=== PATIENT | male | born 1960 | race Hispanic/Latino ===

== ENCOUNTER 2016-09-24 09:37 | Emergency (ER) | payer MEDICAID, OTHER ==
[2016-09-24 09:37] VITALS: BMI 26.4
[2016-09-24 09:41] VITALS: BP 122/73; PULSE 114; RESP 22; TEMP 98.1; O2SAT 94
[2016-09-24] MEDS ORDERED: Albuterol-Ipratrop 3 mg / 0.5 (3 ml) UD ONE ×2 (09:50)
[2016-09-24] MEDS ORDERED: Albuterol-Ipratrop 3 mg / 0.5 (3 ml) UD IH STA ×3 (09:50→13:35)
--- NOTE | 2016-09-24 09:53 | ED PDOC ---
HPI: SOB/CHF/COPD Time Seen by Provider: 09/24/16 09:43 Chief Complaint (Nursing): Respiratory Distress History Per: Patient (SOB wheezing and cough productive clear sputum x 3 days. No fever or chest pain.) Onset/Duration Of Symptoms: Days (3) Current Symptoms Are (Timing): Still Present Initiating Event: Out Of Medications Quality: Tightness Exacerbating Factor(s): Coughing Current Respiratory Medications: Albuterol Severity: Moderate Pain Scale Rating Of: 0 Associated Symptoms: Productive Cough. denies: Fever, Chest Pain Past Medical History Vital Signs: Last Vital Signs Temp 98.1 F 09/24/16 09:40 Pulse 114 H 09/24/16 09:40 Resp 22 09/24/16 09:40 BP 122/73 09/24/16 09:40 Pulse Ox 94 L 09/24/16 09:53 - Medical History PMH: Back Problems, COPD, Depression, Emphysema, Pneumonia, Sleep Apnea Denies: Diabetes, Hepatitis, HIV, HTN, Chronic Kidney Disease, Seizures, Sexually Transmitted Disease - Family History Family History: States: Unknown Family Hx - Immunization History Hx Tetanus Toxoid Vaccination: No Hx Influenza Vaccination: Yes Hx Pneumococcal Vaccination: No - Home Medications Home Medications: Ambulatory Orders Medication Instructions Recorded predniSONE [Prednisone] 20 mg PO DAILY #8 tab 11/10/15 traMADol [Ultram] 50 mg PO TID #7 tab 11/10/15 Prednisone [Deltasone] 40 mg PO DAILY #6 tablet 03/10/16 Albuterol HFA [Ventolin HFA 90 2 puff IH Q4H #1 puff 09/24/16 mcg/actuation (8 g)] Azithromycin [Zithromax] 500 mg PO DAILY #6 tab 09/24/16 predniSONE [predniSONE Tab] 10 mg PO TID #15 tab 09/24/16 - Allergies Allergies/Adverse Reactions: Allergies Allergy/AdvReac Type Severity Reaction Status Date / Time No Known Allergies Allergy Verified 11/10/15 12:58 Review of Systems ROS Statement: Except As Marked, All Systems Reviewed And Found Negative Constitutional: Negative for: Fever Respiratory: Positive for: Cough, Shortness of Breath, Wheezing Physical Exam - Reviewed Nursing Documentation Reviewed: Yes Vital Signs Reviewed: Yes - Physical Exam Appears: Positive for: Non-toxic, No Acute Distress Head Exam: Positive for: ATRAUMATIC, NORMAL INSPECTION, NORMOCEPHALIC Skin: Positive for: Normal Color, Warm, DRY Eye Exam: Positive for: EOMI, Normal appearance, PERRL ENT: Positive for: Normal ENT Inspection Neck: Positive for: Normal, Painless ROM Cardiovascular/Chest: Positive for: Regular Rate, Rhythm Respiratory: Positive for: Rhonchi, Wheezing. Negative for: Accessory Muscle Use, Respiratory Distress Gastrointestinal/Abdominal: Positive for: Normal Exam, Bowel Sounds, Soft Back: Positive for: Normal Inspection Extremity: Positive for: Normal ROM Neurologic/Psych: Positive for: Alert, Oriented - Laboratory Results Result Diagrams: 09/24/16 10:10 09/24/16 09:52 - ECG O2 Sat by Pulse Oximetry: 94 Disposition - Clinical Impression Clinical Impression: COPD (chronic obstructive pulmonary disease) - Patient ED Disposition Is Patient to be Admitted: No Counseled Patient/Family Regarding: Studies Performed, Diagnosis, Need For Followup, Rx Given - Disposition Referrals: [facility] [Outside] Disposition: Routine/Home Disposition Time: 13:37 Condition: FAIR Prescriptions: Albuterol HFA [Ventolin HFA 90 mcg/actuation (8 g)] 2 puff IH Q4H #1 puff Azithromycin [Zithromax] 500 mg PO DAILY #6 tab predniSONE [predniSONE Tab] 10 mg PO TID #15 tab Instructions: COPD (Chronic Obstructive Pulmonary Disease) (ED)
[2016-09-24 10:21] LABS: BASO # 0.1 K/uL (0.0-0.2); BASO % 0.6 % (0.0-2.0); EOS # 0.4 K/uL (0.0-0.7); EOS % 4.4 % (0.0-4.0); LYMPH # 1.8 K/uL (1.0-4.3); LYMPH % 17.5 % (20.0-40.0); MEAN CORPUSCULAR HEMOGLOBIN 31.5 pg (27.0-31.0); MEAN CORPUSCULAR HGB CONC 33.6 g/dL (33.0-37.0); MEAN PLATELET VOLUME 8.6 fl (7.2-11.7); MONO # 0.8 K/uL (0.0-0.8); MONO % 7.5 % (0.0-10.0); NEUT # 7.1 K/uL (1.8-7.0); NRBC % 0.1 % (0.0-0.0); RED CELL DISTRIBUTION WIDTH 13.7 % (11.5-14.5); WHITE BLOOD COUNT 10.1 K/uL (4.8-10.8)
[2016-09-24 10:24] LABS: MEAN CELL VOLUME 93.9 fl (80.0-94.0)
[2016-09-24 10:31] LABS: ALB/GLOB RATIO 1.4 (1.0-2.1); ALKALINE PHOSPHATASE 39 U/L (38-126); ALT/SGPT 16 U/L (21-72); AST/SGOT 27 U/L (17-59); BLOOD UREA NITROGEN 13 mg/dl (9-20); CALCIUM 9.4 mg/dL (8.4-10.2); CARBON DIOXIDE 24 mmol/L (22-30); CHLORIDE 105 mmol/L (98-107); GFR AFRICAN-AMERICAN > 60; GLUCOSE,RANDOM 205 mg/dL (75-110); POTASSIUM 4.6 MMOL/L (3.6-5.0); SODIUM 142 mmol/l (132-148); TOTAL PROTEIN 7.3 G/DL (6.3-8.2)
--- NOTE | 2016-09-24 10:59 | RAD ---
HISTORY: cough COMPARISON: Comparison chest dated 12/06/2015. FINDINGS: LUNGS: No active pulmonary disease. PLEURA: No significant pleural effusion identified, no pneumothorax apparent. CARDIOVASCULAR: Normal. OSSEOUS STRUCTURES: No significant abnormalities. VISUALIZED UPPER ABDOMEN: Normal. OTHER FINDINGS: None. IMPRESSION: No active disease.
[2016-09-24] MEDS ORDERED: Oxycodone/Acetaminophen 5/325 mg Tab PO STA (13:35)
[2016-09-24] MEDS ORDERED: Oxycodone/Acetaminophen 5/325 mg Tab ONE (13:35)
== END 2016-09-24 14:45 | disposition home or self-care (01) ==
LOC: H.ER 09:37
DX: J44.9 Chronic obstructive pulmonary disease, unspecified (principal); R05 Cough

== ENCOUNTER 2016-10-07 06:47 | Inpatient (IN) | payer MEDICAID ==
[2016-10-07 06:47] VITALS: BMI 26.4
[2016-10-07] MEDS ORDERED: Albuterol-Ipratrop 3 mg / 0.5 (3 ml) UD INH STA ×4 (07:27→11:11)
--- NOTE | 2016-10-07 07:32 | ED PDOC ---
HPI: SOB/CHF/COPD Time Seen by Provider: 10/07/16 07:16 Chief Complaint (Nursing): Flu-like Symptoms Chief Complaint (Provider): Flu-like Symptoms, SOB History Per: Patient History/Exam Limitations: no limitations Onset/Duration Of Symptoms: Days Current Symptoms Are (Timing): Still Present Initiating Event: Upper Respiratory Illness Quality: Aching Current Respiratory Medications: See Home Med List Associated Symptoms: Fever, Chills, Productive Cough. denies: Sweating Additional Complaint(s): 56 Year old male Joseph Mahan with history of COPD, presents to the ED with cough and congestion for 3 days. Associated symptoms include Fever, chills, trouble breathing, and a headache. Patient admits to smoking 5-6 cigarettes per day for 40 years. Patient notes that the fever and chills began yesterday, with no nausea, vomiting or diarrhea. PMD: Denies Past Medical History Reviewed: Historical Data, Nursing Documentation, Vital Signs Vital Signs: Last Vital Signs Temp 98.2 F 10/07/16 10:47 Pulse 93 H 10/07/16 10:47 Resp 19 10/07/16 10:47 BP 128/65 10/07/16 10:47 Pulse Ox 98 10/07/16 10:53 - Medical History PMH: Back Problems, COPD, Depression, Emphysema, Pneumonia, Sleep Apnea Denies: Diabetes, Hepatitis, HIV, HTN, Chronic Kidney Disease, Seizures, Sexually Transmitted Disease - Surgical History Surgical History: No Surg Hx - Family History Family History: States: Unknown Family Hx - Social History Current smoker - smoking cessation education provided: Yes Drugs: Denies - Immunization History Hx Tetanus Toxoid Vaccination: No Hx Influenza Vaccination: Yes Hx Pneumococcal Vaccination: No - Home Medications Home Medications: Ambulatory Orders Medication Instructions Recorded predniSONE [Prednisone] 20 mg PO DAILY #8 tab 11/10/15 traMADol [Ultram] 50 mg PO TID #7 tab 11/10/15 Prednisone [Deltasone] 40 mg PO DAILY #6 tablet 03/10/16 Albuterol HFA [Ventolin HFA 90 2 puff IH Q4H #1 puff 09/24/16 mcg/actuation (8 g)] Azithromycin [Zithromax] 500 mg PO DAILY #6 tab 09/24/16 predniSONE [predniSONE Tab] 10 mg PO TID #15 tab 09/24/16 - Allergies Allergies/Adverse Reactions: Allergies Allergy/AdvReac Type Severity Reaction Status Date / Time No Known Allergies Allergy Verified 11/10/15 12:58 Review of Systems ROS Statement: Except As Marked, All Systems Reviewed And Found Negative Constitutional: Positive for: Fever, Chills. Negative for: Sweats Cardiovascular: Negative for: Edema Respiratory: Positive for: Cough, Shortness of Breath, Pleuritic Pain, Wheezing (diffused) Gastrointestinal: Negative for: Vomiting, Diarrhea Musculoskeletal: Positive for: Other (diffuses body pain) Neurological: Positive for: Headache Physical Exam - Reviewed Nursing Documentation Reviewed: Yes Vital Signs Reviewed: Yes - Physical Exam Appears: Positive for: Uncomfortable Skin: Positive for: Normal Color, Warm Eye Exam: Positive for: Normal appearance, PERRL Neck: Positive for: Normal, Painless ROM, Supple Cardiovascular/Chest: Positive for: Regular Rate, Rhythm. Negative for: Murmur Respiratory: Positive for: Wheezing (inspiratory and expiratory ), Respiratory Distress (mild labored breathing ). Negative for: Accessory Muscle Use Gastrointestinal/Abdominal: Positive for: Normal Exam, Soft. Negative for: Tenderness Extremity: Positive for: Normal ROM. Negative for: Pedal Edema, Calf Tenderness Neurologic/Psych: Positive for: Alert, Oriented. Negative for: Motor/Sensory Deficits - Laboratory Results Result Diagrams: 10/07/16 07:30 10/07/16 07:30 - ECG O2 Sat by Pulse Oximetry: 98 (RA) Pulse Ox Interpretation: Normal - Radiology X-Ray: Viewed By Me, Read By Radiologist X-Ray Interpretation: No Acute Disease - Progress Re-evaluation Time: 10:50 Condition: Re-examined, Unchanged Medical Decision Making Medical Decision Makin: Initial impression: Upper respiratory tract infection, COPD with exacerbation, Pneumonia, Bronchitis, Dehydration. Initial plan: * ABG Shock Panel * EKG * Comp metabolic panel * EKG-ED * CBC with differentials * PA/LAT RAD * Albuterol/Ipratropium 3mg * Sodium Chloride IV 1000ml * Methylprednisolone 125mg * Blood Culture * IV * Flu A B * Re-Eval ~ Scribe Attestation: Documented by Analia Greer training under Dora Jain, acting as a scribe for Dr. Meng. Provider Scribe Attestation: All medical record entries made by the Scribe were at my direction and personally dictated by me. I have reviewed the chart and agree that the record accurately reflects my personal performance of the history, physical exam, medical decision making, and the department course for this patient. I have also personally directed, reviewed, and agree with the discharge instructions and disposition. 10.15a - patient is still short of breath and states dyspnea on exertion and fatigue as well. He still has diffuse wheezing. Per RN his peak flows baseline/ post treatment are 200/220. Agrees to be admitted. Does not have PMD. Admitted to med/surg obs 1055a - case d/w Dr. Elizondo for admission Disposition - Clinical Impression Clinical Impression: COPD (chronic obstructive pulmonary disease) with emphysema - Patient ED Disposition Is Patient to be Admitted: Yes Doctor Will See Patient In The: Hospital - Disposition Disposition: Transfer of Care Disposition Time: 10:15 Condition: FAIR - Pt Status Changed To: Hospital Disposition Of: Observation
[2016-10-07] MEDS ORDERED: Sodium Chloride 0.9% 1,000 ML IV STA (07:33)
[2016-10-07 07:55] LABS: BASO % 0.6 % (0.0-2.0); HEMATOCRIT 40.4 % (35.0-51.0); LYMPH # 0.8 K/uL (1.0-4.3); LYMPH % 10.2 % (20.0-40.0); MEAN CELL VOLUME 91.6 fl (80.0-94.0); MEAN CORPUSCULAR HEMOGLOBIN 31.5 pg (27.0-31.0); MEAN CORPUSCULAR HGB CONC 34.4 g/dL (33.0-37.0); MEAN PLATELET VOLUME 8.1 fl (7.2-11.7); MONO # 0.9 K/uL (0.0-0.8); MONO % 12.2 % (0.0-10.0); NEUT # 5.9 K/uL (1.8-7.0); NRBC % 0.2 % (0.0-0.0); RED CELL DISTRIBUTION WIDTH 13.6 % (11.5-14.5); WHITE BLOOD COUNT 7.6 K/uL (4.8-10.8)
[2016-10-07] MEDS ORDERED: Albuterol-Ipratrop 3 mg / 0.5 (3 ml) UD ONE (08:00)
[2016-10-07 08:07] LABS: ALB/GLOB RATIO 1.2 (1.0-2.1); ALKALINE PHOSPHATASE 44 U/L (38-126); ALT/SGPT 31 U/L (21-72); AST/SGOT 48 U/L (17-59); BILIRUBIN,TOTAL 0.9 mg/dl (0.2-1.3); BLOOD UREA NITROGEN 16 mg/dl (9-20); CALCIUM 8.9 mg/dL (8.4-10.2); CARBON DIOXIDE 19 mmol/L (22-30); CHLORIDE 96 mmol/L (98-107); GFR AFRICAN-AMERICAN > 60; GLUCOSE,RANDOM 89 mg/dL (75-110); POTASSIUM 4.4 MMOL/L (3.6-5.0); SODIUM 131 mmol/l (132-148); TOTAL PROTEIN 7.5 G/DL (6.3-8.2)
--- NOTE | 2016-10-07 10:28 | RAD ---
HISTORY: Cough, fever ,chills x 1week COMPARISON: 09/24/2016. FINDINGS: LUNGS: The lungs are well inflated and clear. Ne on PLEURA: No significant pleural effusion identified, no pneumothorax apparent. CARDIOVASCULAR: Normal. OSSEOUS STRUCTURES: No significant abnormalities. VISUALIZED UPPER ABDOMEN: Normal. OTHER FINDINGS: None. IMPRESSION: No active pulmonary disease.
[2016-10-07] MEDS ORDERED: Promethazine DM 12.5 mg-30 mg/10 ml Syrup PO STA (11:11)
[2016-10-07 11:33] LABS: ABG ALLEN TEST YES; ARTERIAL BLOOD GAS HCO3 23.5 mmol/L (21-28); ARTERIAL BLOOD GAS PH 7.51 (7.35-7.45); ARTERIAL BLOOD GAS PO2 34 mm/Hg (80-100)
[2016-10-07] MEDS: Albuterol-Ipratrop 3 mg / 0.5 (3 ml) UD INH SCH ×2 (14:10→19:04)
[2016-10-07] MEDS: methylPREDNISolone 60 MG in Sodium Chloride 0.9% 50 ML IV SCH ×2 (17:25→21:20)
[2016-10-07] MEDS: guaiFENesin DM 200 mg-20 mg/10 ml UD PO PRN (21:20)
[2016-10-08] MEDS: Albuterol-Ipratrop 3 mg / 0.5 (3 ml) UD INH SCH ×3 (01:21→13:22)
[2016-10-08] MEDS: methylPREDNISolone 60 MG in Sodium Chloride 0.9% 50 ML IV SCH ×4 (04:00→21:34)
[2016-10-08] MEDS: guaiFENesin DM 200 mg-20 mg/10 ml UD PO PRN (05:54)
[2016-10-08 09:04] LABS: THYROID STIMULATING HORMONE 0.64 mIU/ML (0.46-4.68)
[2016-10-08] MEDS: Enoxaparin 40 mg Syringe SC SCH (09:05)
--- NOTE | 2016-10-08 10:28 | CARD ---
APPROVED REPORT EKG Measurement Heart [id number] <Conclusion> Sinus tachycardia Possible Left atrial enlargement Borderline ECG
[2016-10-08] MEDS: Promethazine DM 12.5 mg-30 mg/10 ml Syrup PO PRN ×2 (13:15→19:03)
[2016-10-09] MEDS: Albuterol-Ipratrop 3 mg / 0.5 (3 ml) UD INH SCH ×2 (01:12→07:52)
[2016-10-09] MEDS: methylPREDNISolone 60 MG in Sodium Chloride 0.9% 50 ML IV SCH ×5 (03:36→21:17)
[2016-10-09] MEDS: Promethazine DM 12.5 mg-30 mg/10 ml Syrup PO PRN ×3 (03:36→16:35)
[2016-10-09 07:29] LABS: HEMATOCRIT 40.7 % (35.0-51.0); MEAN CELL VOLUME 92.3 fl (80.0-94.0); MEAN CORPUSCULAR HEMOGLOBIN 31.3 pg (27.0-31.0); MEAN CORPUSCULAR HGB CONC 33.9 g/dL (33.0-37.0); RED CELL DISTRIBUTION WIDTH 13.7 % (11.5-14.5); WHITE BLOOD COUNT 17.3 K/uL (4.8-10.8)
[2016-10-09 07:42] LABS: ALB/GLOB RATIO 1.2 (1.0-2.1); ALKALINE PHOSPHATASE 51 U/L (38-126); ALT/SGPT 41 U/L (21-72); AST/SGOT 47 U/L (17-59); BILIRUBIN,TOTAL 0.2 mg/dl (0.2-1.3); BLOOD UREA NITROGEN 17 mg/dl (9-20); CALCIUM 9.2 mg/dL (8.4-10.2); CARBON DIOXIDE 24 mmol/L (22-30); CHLORIDE 103 mmol/L (98-107); GFR AFRICAN-AMERICAN > 60; GLUCOSE,RANDOM 128 mg/dL (75-110); POTASSIUM 4.1 MMOL/L (3.6-5.0); SODIUM 141 mmol/l (132-148); TOTAL PROTEIN 7.1 G/DL (6.3-8.2)
[2016-10-09] MEDS: Enoxaparin 40 mg Syringe SC SCH (09:09)
[2016-10-09] MEDS ORDERED: Albuterol 0.083% Inhal Sol (2.5 mg/3 mL) UD INH PRN (12:13)
--- NOTE | 2016-10-09 12:15 | CP.PCM.PN ---
<MaradaleFadumo - Last Filed: 10/09/16 19:18> Subjective - Date & Time of Evaluation Date of Evaluation: 10/09/16 Time of Evaluation: 08:30 - Subjective Subjective: 56M seen and examined at bedside with attending this morning. Pt reports he is still experiencing a significant amount of dyspnea and feels he needs the oxygen. He denies chest pain and says this is the worst "flare up " he's ever had and admits that he still smokes. Otherwise he has no acute complaints. Objective - Vital Signs/Intake and Output Vital Signs (last 24 hours): Temp Pulse Resp BP Pulse Ox 36.7 C 81 20 144/83 95 10/09/16 07:51 10/09/16 07:51 10/09/16 07:51 10/09/16 07:51 10/09/16 07:51 - Medications Medications: Current Medications Acetaminophen (Tylenol 325mg Tab) 650 mg PO Q6 PRN PRN Reason: Pain, moderate (4-7) Last Admin: 10/09/16 09:12 Dose: 650 mg Albuterol Sulfate (Albuterol 0.083% Inhal Susan (2.5 Mg/3 Ml) Ud) 2.5 mg INH RQ6 PRN PRN Reason: Shortness of Breath Enoxaparin Sodium (Lovenox) 40 mg SC DAILY FAHEEM PRN Reason: Protocol Last Admin: 10/09/16 09:09 Dose: 40 mg Methylprednisolone 60 mg/ (Sodium Chloride) 50 mls @ 100 mls/hr IV Q6 FHAEEM Last Admin: 10/09/16 10:07 Dose: 100 mls/hr Nicotine (Nicoderm Cq) 1 patch TD DAILY FAHEEM Last Admin: 10/09/16 09:10 Dose: 1 patch Promethazine HCl/Dextromethorphan (Phenergan Dm Syrup) 10 ml PO Q6 PRN PRN Reason: Cough Last Admin: 10/09/16 09:10 Dose: 10 ml Tiotropium [place] (Spiriva) 18 mcg INH DAILY FAHEEM Zolpidem Tartrate (Ambien) 5 mg PO HS PRN PRN Reason: Insomnia Last Admin: 10/08/16 22:48 Dose: 5 mg - Labs Labs: 10/09/16 06:05 10/09/16 06:05 - Constitutional Appears: Non-toxic, No Acute Distress - Head Exam Head Exam: ATRAUMATIC, NORMAL INSPECTION - Eye Exam Eye Exam: EOMI, PERRL - ENT Exam ENT Exam: Mucous Membranes Moist, Normal Exam - Neck Exam Neck Exam: Full ROM, Normal Inspection - Respiratory Exam Respiratory Exam: Wheezes (throughout bilaterally), NORMAL BREATHING PATTERN. absent: Decreased Breath Sounds - Cardiovascular Exam Cardiovascular Exam: REGULAR RHYTHM. absent: JVD - GI/Abdominal Exam GI & Abdominal Exam: Soft, Normal Bowel Sounds. absent: Tenderness - Extremities Exam Extremities Exam: Full ROM, Normal Capillary Refill - Neurological Exam Neurological Exam: Alert, Awake - Psychiatric Exam Psychiatric exam: Normal Affect, Normal Mood - Skin Skin Exam: Normal Color, Warm Assessment and Plan (1) COPD exacerbation Assessment & Plan: Continues to make some improvement. Steroids are causing leukocytosis. - Spiriva 18mcg, INH, Daily - Albuterol 0.083% 2.5mg, INH, Q6H - Methyprednisone 60mg, IV, Q6H - Oxygen 2L NC - Promethazine 10ml, PO, Q6H PRN Status: Acute (2) DVT prophylaxis Assessment & Plan: Lovenox 40mg, SC, Daily Status: Acute (3) Alcohol abuse Assessment & Plan: Significant alcohol abuse history. CIWA- 3 - CIWA Score, QShift - Ativan 2mg, IV, Q2H PRN CIWA Score > 10 Status: Chronic <Addi Elizondo - Last Filed: 10/19/16 18:17> Objective - Vital Signs/Intake and Output Vital Signs (last 24 hours): Temp Pulse Resp BP Pulse Ox 97.4 F L 79 20 133/83 93 L 10/12/16 08:18 10/12/16 08:18 10/12/16 08:18 10/12/16 08:18 10/12/16 08:18 - Labs Labs: 10/11/16 05:55 10/11/16 05:55 Assessment and Plan - Assessment and Plan (Free Text) Assessment: Patient was personally seen and examined by me in rounds with residents. Available labs and diagnostic data reviewed. Case, Patient's condition and management plan discussed with residents in rounds. Agree with resident's documentation. Plan: As ordered. Addi Elizondo MD
[2016-10-09] MEDS: Pantoprazole 40 mg EC Tab PO SCH (13:39)
[2016-10-09] MEDS: Albuterol 0.083% Inhal Sol (2.5 mg/3 mL) UD INH SCH (19:46)
[2016-10-09] MEDS: Docusate-Senna 50 mg-8.6 mg Tab PO SCH (21:16)
[2016-10-10] MEDS: Albuterol 0.083% Inhal Sol (2.5 mg/3 mL) UD INH SCH ×4 (01:18→19:35)
[2016-10-10] MEDS: methylPREDNISolone 60 MG in Sodium Chloride 0.9% 50 ML IV SCH ×2 (04:21→08:59)
[2016-10-10] MEDS: Promethazine DM 12.5 mg-30 mg/10 ml Syrup PO PRN ×3 (04:21→15:51)
--- NOTE | 2016-10-10 07:35 | CP.PCM.PN ---
<Fadumo Wright - Last Filed: 10/10/16 11:58> Subjective - Date & Time of Evaluation Date of Evaluation: 10/10/16 Time of Evaluation: 07:35 - Subjective Subjective: 56M seen and examined at bedside with attending. Patient reports feeling much better this morning and reports minimal SOB but denies any chest pain/visual/auditory/headache symptoms Objective - Vital Signs/Intake and Output Vital Signs (last 24 hours): Temp Pulse Resp BP Pulse Ox 36.6 C 76 20 144/85 96 10/09/16 20:31 10/09/16 20:31 10/09/16 20:31 10/09/16 20:31 10/09/16 20:31 Intake and Output: 10/10/16 10/10/16 06:59 18:59 Intake Total 50 Balance 50 - Medications Medications: Current Medications Acetaminophen (Tylenol 325mg Tab) 650 mg PO Q6 PRN PRN Reason: Pain, moderate (4-7) Last Admin: 10/09/16 09:12 Dose: 650 mg Albuterol Sulfate (Albuterol 0.083% Inhal Susan (2.5 Mg/3 Ml) Ud) 2.5 mg INH RQ6 FAHEEM Last Admin: 10/10/16 01:18 Dose: Not Given Enoxaparin Sodium (Lovenox) 40 mg SC DAILY FAHEEM PRN Reason: Protocol Last Admin: 10/09/16 09:09 Dose: 40 mg Methylprednisolone 60 mg/ (Sodium Chloride) 50 mls @ 100 mls/hr IV Q6 FAHEEM Last Admin: 10/10/16 04:21 Dose: 100 mls/hr Lorazepam (Ativan) 2 mg IVP Q2H PRN PRN Reason: CIWA Score >10 Nicotine (Nicoderm Cq) 1 patch TD DAILY FAHEEM Last Admin: 10/09/16 09:10 Dose: 1 patch Pantoprazole Sodium (Protonix Ec Tab) 40 mg PO DAILY FAHEEM Last Admin: 10/09/16 13:39 Dose: 40 mg Promethazine HCl/Dextromethorphan (Phenergan Dm Syrup) 10 ml PO Q6 PRN PRN Reason: Cough Last Admin: 10/10/16 04:21 Dose: 10 ml Senna/Docusate Sodium (Senokot S 50 Mg-8.6 Mg) 2 tab PO HS FAHEEM Last Admin: 10/09/16 21:16 Dose: 2 tab Tiotropium [place] (Spiriva) 18 mcg INH DAILY FAHEEM Zolpidem Tartrate (Ambien) 5 mg PO HS PRN PRN Reason: Insomnia Last Admin: 10/09/16 21:58 Dose: 5 mg - Labs Labs: 10/09/16 06:05 10/09/16 06:05 - Constitutional Appears: Well, Non-toxic, No Acute Distress - Head Exam Head Exam: ATRAUMATIC, NORMAL INSPECTION - Eye Exam Eye Exam: EOMI, PERRL. absent: Nystagmus - ENT Exam ENT Exam: Mucous Membranes Moist, Normal Exam - Neck Exam Neck Exam: Full ROM, Normal Inspection - Respiratory Exam Respiratory Exam: Wheezes (MUCH improved but still present b/l), NORMAL BREATHING PATTERN. absent: Rales - Cardiovascular Exam Cardiovascular Exam: REGULAR RHYTHM. absent: JVD - GI/Abdominal Exam GI & Abdominal Exam: Soft, Normal Bowel Sounds. absent: Tenderness - Extremities Exam Additional comments: No tremors in hands - Neurological Exam Neurological Exam: Alert, Awake - Psychiatric Exam Psychiatric exam: Normal Affect, Normal Mood - Skin Skin Exam: Normal Color, Warm Assessment and Plan (1) COPD exacerbation Assessment & Plan: Continues to make some improvement. Steroids are causing leukocytosis. - Spiriva 18mcg, INH, Daily - Albuterol 0.083% 2.5mg, INH, Q6H - Methyprednisone 60mg, IV, Q6H - Promethazine 10ml, PO, Q6H PRN Status: Acute (2) DVT prophylaxis Assessment & Plan: Lovenox 40mg, SC, Daily Status: Acute (3) Alcohol abuse Assessment & Plan: Significant alcohol abuse history. CIWA- 0 this morning - CIWA Score, QShift - Ativan 2mg, IV, Q2H PRN CIWA Score > 10 Status: Chronic <Elizondo,Addi K - Last Filed: 10/19/16 18:19> Objective - Vital Signs/Intake and Output Vital Signs (last 24 hours): Temp Pulse Resp BP Pulse Ox 97.4 F L 79 20 133/83 93 L 10/12/16 08:18 10/12/16 08:18 10/12/16 08:18 10/12/16 08:18 10/12/16 08:18 - Labs Labs: 10/11/16 05:55 10/11/16 05:55 Assessment and Plan - Assessment and Plan (Free Text) Assessment: Patient was personally seen and examined by me in rounds with residents. Available labs and diagnostic data reviewed. Case, Patient's condition and management plan discussed with residents in rounds. Agree with resident's documentation. Plan: As ordered. Addi Elizondo MD
[2016-10-10] MEDS: Pantoprazole 40 mg EC Tab PO SCH (08:57)
[2016-10-10] MEDS: Tiotropium 18 mcg Cap For Inhalation INH SCH (08:57)
[2016-10-10] MEDS: Enoxaparin 40 mg Syringe SC SCH (08:57)
--- NOTE | 2016-10-10 13:19 | HP ---
CHIEF COMPLAINT: Shortness of breath and flu-like symptoms. HISTORY OF PRESENT ILLNESS: This is a 56-year-old male, known case of COPD, who was having cough and congestion for a few days before admission, which got worse and started having fever, chills, shortness of breath, so patient was brought to Emergency Room and was admitted for further management. REVIEW OF SYSTEMS: Positive for generalized malaise, weakness, fatigue, flu- like symptoms, fever, chills, cough and congestion. Review of systems otherwise is negative for headache, dizziness, syncope, loss of consciousness, nausea, vomiting, diarrhea, constipation, any new joint or extremity pain. Review of systems of all other organ systems is unremarkable. PAST MEDICAL HISTORY: Significant for COPD, sleep apnea, back problem. PAST SURGICAL HISTORY: Unremarkable. PERSONAL HISTORY: The patient is currently a nondrinker, no substance abuse. However, the patient has history of lots, many years of smoking. The patient also still smokes but has cut down. FAMILY HISTORY: Noncontributory. MEDICATIONS: The patient is on Ultram, prednisone, Ventolin, Zithromax. ALLERGIES: The patient is not allergic to any medication. FAMILY HISTORY: Noncontributory. PHYSICAL EXAMINATION: GENERAL: Well-built, well-nourished, overweight 56-year-old male in no acute distress. VITAL SIGNS: Temperature afebrile, pulse 77, respirations 16, blood pressure 120/80. HEENT: Pupils reacting to light. NECK: No JVD, no thyromegaly, no lymphadenopathy, no nystagmus. Normocephalic , atraumatic skull. HEART: S1, S2 normal, regular. LUNGS: Good bilateral air exchange. The patient has prolonged expiration. Also has rhonchi and wheezing. ABDOMEN: Soft, nontender, no organomegaly, no fluid. Bowel sounds are plus. EXTREMITIES: No edema, no calf swelling, no tenderness, no acute ischemia. CENTRAL NERVOUS SYSTEM: The patient is alert, awake, oriented x 3. There is no sign of any acute gross focal motor or sensory neurological deficit. DIAGNOSTIC DATA: Available diagnostic data reviewed. EKG shows sinus tachycardia but no acute ST-T changes. Chest x-ray shows normal chest x-ray without any acute pneumonia. Vitamin B12 level is 781. TSH level is 0.64. Sodium 134, potassium 4.4, chloride 96, bicarb 19, BUN is 16, creatinine is 0.8. SMA-12 is unremarkable. Flu test is negative. WBC 7.6, hemoglobin 13.9, hematocrit 10.4, platelets 231. ADMITTING IMPRESSION: Chronic obstructive pulmonary disease with exacerbation. PLAN: As ordered. Case and plan discussed with patient. Addi Elizondo MD cc: [id number] TT: 10/08/2016 16:45:00 sn 10/10/2016 12:18:55 BECCA
[2016-10-10] MEDS: methylPREDNISolone 40 MG in Sodium Chloride 0.9% 50 ML IVPB SCH ×2 (15:50→17:07)
[2016-10-10] MEDS: Docusate-Senna 50 mg-8.6 mg Tab PO SCH (21:35)
[2016-10-11] MEDS: Albuterol 0.083% Inhal Sol (2.5 mg/3 mL) UD INH SCH ×4 (00:59→19:52)
[2016-10-11] MEDS: methylPREDNISolone 40 MG in Sodium Chloride 0.9% 50 ML IVPB SCH (01:00)
[2016-10-11] MEDS: Promethazine DM 12.5 mg-30 mg/10 ml Syrup PO PRN ×4 (01:00→22:28)
[2016-10-11 07:47] LABS: HEMATOCRIT 43.9 % (35.0-51.0); MEAN CELL VOLUME 93.1 fl (80.0-94.0); MEAN CORPUSCULAR HEMOGLOBIN 31.1 pg (27.0-31.0); MEAN CORPUSCULAR HGB CONC 33.4 g/dL (33.0-37.0); RED CELL DISTRIBUTION WIDTH 13.6 % (11.5-14.5); WHITE BLOOD COUNT 15.2 K/uL (4.8-10.8)
--- NOTE | 2016-10-11 08:07 | CP.PCM.PN ---
<Fadumo Wright - Last Filed: 10/11/16 16:24> Subjective - Date & Time of Evaluation Date of Evaluation: 10/11/16 Time of Evaluation: 06:20 - Subjective Subjective: 56M seen and examined at bedside with attending follow up for shortness of breath as it relates to COPD exacerbation. Patient reports significant improvement. He currently denies any chest pain and experiences most of his shortness of breath when walking around which is improved from previous when it was present at rest. He is eating well and has no other complaints. Objective - Vital Signs/Intake and Output Vital Signs (last 24 hours): Temp Pulse Resp BP Pulse Ox 36.6 C 77 20 141/85 94 L 10/11/16 08:00 10/11/16 08:00 10/11/16 08:00 10/11/16 08:00 10/11/16 08:00 - Medications Medications: Current Medications Acetaminophen (Tylenol 325mg Tab) 650 mg PO Q6 PRN PRN Reason: Pain, moderate (4-7) Last Admin: 10/09/16 09:12 Dose: 650 mg Albuterol Sulfate (Albuterol 0.083% Inhal Susan (2.5 Mg/3 Ml) Ud) 2.5 mg INH RQ6 FAHEEM Last Admin: 10/11/16 07:43 Dose: 2.5 mg Enoxaparin Sodium (Lovenox) 40 mg SC DAILY FAHEEM PRN Reason: Protocol Last Admin: 10/10/16 08:57 Dose: 40 mg Methylprednisolone 30 mg/ (Sodium Chloride) 50 mls @ 100 mls/hr IVPB Q12H FAHEEM Lorazepam (Ativan) 2 mg IVP Q2H PRN PRN Reason: CIWA Score >10 Nicotine (Nicoderm Cq) 1 patch TD DAILY FAHEEM Last Admin: 10/10/16 08:56 Dose: 1 patch Pantoprazole Sodium (Protonix Ec Tab) 40 mg PO DAILY FAHEEM Last Admin: 10/10/16 08:57 Dose: 40 mg Promethazine HCl/Dextromethorphan (Phenergan Dm Syrup) 10 ml PO Q6 PRN PRN Reason: Cough Last Admin: 10/11/16 01:00 Dose: 10 ml Senna/Docusate Sodium (Senokot S 50 Mg-8.6 Mg) 2 tab PO HS FAHEEM Last Admin: 10/10/16 21:35 Dose: 2 tab Tiotropium [place] (Spiriva) 18 mcg INH DAILY FAHEEM Last Admin: 10/10/16 08:57 Dose: 18 mcg Zolpidem Tartrate (Ambien) 5 mg PO HS PRN PRN Reason: Insomnia Last Admin: 10/10/16 21:35 Dose: 5 mg - Labs Labs: 10/11/16 05:55 10/09/16 06:05 - Constitutional Appears: Well, Non-toxic, No Acute Distress - Head Exam Head Exam: ATRAUMATIC, NORMAL INSPECTION - Eye Exam Eye Exam: EOMI, PERRL - ENT Exam ENT Exam: Mucous Membranes Moist, Normal Exam - Neck Exam Neck Exam: Full ROM, Normal Inspection - Respiratory Exam Respiratory Exam: Clear to Ausculation Bilateral, Wheezes (mild wheezing b/l primarily in upper lobes), NORMAL BREATHING PATTERN. absent: Rales, Rhonchi - Cardiovascular Exam Cardiovascular Exam: REGULAR RHYTHM. absent: JVD - GI/Abdominal Exam GI & Abdominal Exam: Soft, Normal Bowel Sounds. absent: Tenderness - Extremities Exam Extremities Exam: Full ROM, Normal Capillary Refill - Neurological Exam Neurological Exam: Alert, Awake, Oriented x3 - Psychiatric Exam Psychiatric exam: Normal Affect, Normal Mood - Skin Skin Exam: Normal Color, Warm Assessment and Plan (1) COPD exacerbation Assessment & Plan: Continues to improve, tapering steroids today which are still contributing to leukocytosis. - Spiriva 18mcg, INH, Daily - Albuterol 0.083% 2.5mg, INH, Q6H - Methyprednisone 30mg, IV, Q12H - Promethazine 10ml, PO, Q6H PRN Status: Acute (3) DVT prophylaxis Assessment & Plan: Lovenox 40mg, SC, Daily Status: Acute (4) Alcohol abuse Assessment & Plan: HD# 3 w/ alcohol abuse history. CIWA- 0 this morning - CIWA Score, QShift - Ativan 2mg, IV, Q2H PRN CIWA Score > 10 Status: Chronic <Elizondo,Addi K - Last Filed: 10/18/16 17:12> Objective - Vital Signs/Intake and Output Vital Signs (last 24 hours): Temp Pulse Resp BP Pulse Ox 97.4 F L 79 20 133/83 93 L 10/12/16 08:18 10/12/16 08:18 10/12/16 08:18 10/12/16 08:18 10/12/16 08:18 - Labs Labs: 10/11/16 05:55 10/11/16 05:55 Assessment and Plan - Assessment and Plan (Free Text) Assessment: Patient was personally seen and examined by me in rounds with residents. Available labs and diagnostic data reviewed. Case, Patient's condition and management plan discussed with residents in rounds. Agree with resident's documentation. Plan: As ordered. Addi Elizondo MD
[2016-10-11 08:20] LABS: BLOOD UREA NITROGEN 17 mg/dl (9-20); CALCIUM 9.7 mg/dL (8.4-10.2); CARBON DIOXIDE 26 mmol/L (22-30); CHLORIDE 95 mmol/L (98-107); GFR AFRICAN-AMERICAN > 60; GLUCOSE,RANDOM 115 mg/dL (75-110); POTASSIUM 4.4 MMOL/L (3.6-5.0); SODIUM 137 mmol/l (132-148)
[2016-10-11] MEDS: Enoxaparin 40 mg Syringe SC SCH (09:30)
[2016-10-11] MEDS: Pantoprazole 40 mg EC Tab PO SCH (09:35)
[2016-10-11] MEDS: Tiotropium 18 mcg Cap For Inhalation INH SCH (09:36)
[2016-10-11] MEDS: methylPREDNISolone 30 MG in Sodium Chloride 0.9% 50 ML IVPB SCH ×2 (10:11→21:00)
[2016-10-11] MEDS: Docusate-Senna 50 mg-8.6 mg Tab PO SCH (22:31)
[2016-10-12] MEDS: Albuterol 0.083% Inhal Sol (2.5 mg/3 mL) UD INH SCH ×2 (02:18→07:24)
--- NOTE | 2016-10-12 06:45 | CP.PCM.DIS ---
Provider - Provider Date of Admission: 10/08/16 09:03 Attending physician: Addi Elizondo MD Time Spent in preparation of Discharge (in minutes): 45 Diagnosis - Discharge Diagnosis (1) COPD exacerbation Status: Acute Comment: Resolved. Discharge on Ventolin and Spiriva, and Medrol pack (2) Encounter for smoking cessation counseling Status: Acute Comment: Patient counseled on smoking cessation. He feels he isready to completely quit and wishes to continue with the Nicoderm smoking cessation at this time. Health and benefits discussed in the context of COPD. He should be discharged with Nicoderm and close follow up. Hospital Course - Lab Results Lab Results: Most Recent Lab Values WBC 15.2 K/uL (4.8-10.8) H 10/11/16 05:55 RBC 4.71 Mil/uL (4.40-5.90) 10/11/16 05:55 Hgb 14.7 g/dL (12.0-18.0) 10/11/16 05:55 Hct 43.9 % (35.0-51.0) 10/11/16 05:55 MCV 93.1 fl (80.0-94.0) 10/11/16 05:55 MCH 31.1 pg (27.0-31.0) H 10/11/16 05:55 MCHC 33.4 g/dL (33.0-37.0) 10/11/16 05:55 RDW 13.6 % (11.5-14.5) 10/11/16 05:55 Plt Count 345 K/uL (130-400) 10/11/16 05:55 MPV 8.1 fl (7.2-11.7) 10/07/16 07:30 Neut % (Auto) 77.0 % (50.0-75.0) H 10/07/16 07:30 Lymph % (Auto) 10.2 % (20.0-40.0) L 10/07/16 07:30 Knox % (Auto) 12.2 % (0.0-10.0) H 10/07/16 07:30 Eos % (Auto) 0.0 % (0.0-4.0) 10/07/16 07:30 Baso % (Auto) 0.6 % (0.0-2.0) 10/07/16 07:30 Neut # 5.9 K/uL (1.8-7.0) 10/07/16 07:30 Lymph # 0.8 K/uL (1.0-4.3) L 10/07/16 07:30 Knox # 0.9 K/uL (0.0-0.8) H 10/07/16 07:30 Eos # 0.0 K/uL (0.0-0.7) 10/07/16 07:30 Baso # 0.0 K/uL (0.0-0.2) 10/07/16 07:30 pCO2 26 mm/Hg (35-45) L 10/07/16 11:30 pO2 34 mm/Hg (80-100) L* 10/07/16 11:30 HCO3 23.5 mmol/L (21-28) 10/07/16 11:30 ABG pH 7.51 (7.35-7.45) H 10/07/16 11:30 ABG Total CO2 21.5 mmol/L (22-28) L 10/07/16 11:30 ABG O2 Saturation 74.5 % (95-98) L 10/07/16 11:30 ABG Base Excess -0.9 mmol/L (-2.0-3.0) 10/07/16 11:30 Bulmaro Test Yes 10/07/16 11:30 Sodium > 200.0 mmol/L (132-148) H* 10/07/16 11:30 Chloride 115.0 mmol/L (98-107) H 10/07/16 11:30 Glucose 72 mg/dL (75-110) L 10/07/16 11:30 Lactate 1.9 mmol/L (0.7-2.1) 10/07/16 11:30 FiO2 40.0 % 10/07/16 11:30 Crit Value Called To lanny Webber 10/07/16 11:30 Crit Value Called By 203 10/07/16 11:30 Crit Value Read Back Y 10/07/16 11:30 Blood Gas Notified Time 1133 10/07/16 11:30 Sodium 137 mmol/l (132-148) 10/11/16 05:55 Potassium 4.4 MMOL/L (3.6-5.0) 10/11/16 05:55 Chloride 95 mmol/L (98-107) L 10/11/16 05:55 Carbon Dioxide 26 mmol/L (22-30) 10/11/16 05:55 Anion Gap 20 (10-20) 10/11/16 05:55 BUN 17 mg/dl (9-20) 10/11/16 05:55 Creatinine 0.6 mg/dL (0.8-1.5) L 10/11/16 05:55 Est GFR ( Amer) > 60 10/11/16 05:55 Est GFR (Non-Af Amer) > 60 10/11/16 05:55 POC Glucose (mg/dL) 87 mg/dL (65-110) 10/07/16 07:04 Random Glucose 115 mg/dL (75-110) H 10/11/16 05:55 Calcium 9.7 mg/dL (8.4-10.2) 10/11/16 05:55 Total Bilirubin 0.2 mg/dl (0.2-1.3) 10/09/16 06:05 AST 47 U/L (17-59) 10/09/16 06:05 ALT 41 U/L (21-72) 10/09/16 06:05 Alkaline Phosphatase 51 U/L (38-126) 10/09/16 06:05 Total Protein 7.1 G/DL (6.3-8.2) 10/09/16 06:05 Albumin 3.8 g/dL (3.5-5.0) 10/09/16 06:05 Globulin 3.3 gm/dL (2.2-3.9) 10/09/16 06:05 Albumin/Globulin Ratio 1.2 (1.0-2.1) 10/09/16 06:05 Vitamin B12 781 pg/mL (239-931) 10/08/16 07:50 TSH 3rd Generation 0.64 mIU/ML (0.46-4.68) 10/08/16 07:50 Influenza Typ A,B (EIA) Negative for flu a/b (NEGATIVE) 10/07/16 07:30 - Hospital Course Hospital Course: F/U COPD Exacerbation. Patient seen and examined at bedside this morning with attending. No complaints, denies SOB, chest pain, and reports eating well, and passing stool. 56M admitted for severe COPD exacerbation which has resolved with aggressive steroid and pulmonary treatments. He is stable for discharge with Spiriva, Ventolin, and Nicoderm. Discharge Exam - Head Exam Head Exam: ATRAUMATIC, NORMAL INSPECTION - Eye Exam Eye Exam: EOMI, PERRL - ENT Exam ENT Exam: Mucous Membranes Moist, Normal Exam - Neck Exam Neck exam: Full Rom, Normal Inspection - Respiratory Exam Respiratory Exam: Clear to PA & Lateral, NORMAL BREATHING PATTERN. absent: Rales, Rhonchi, Wheezes - Cardiovascular Exam Cardiovascular Exam: REGULAR RHYTHM. absent: JVD - GI/Abdominal Exam GI & Abdominal Exam: Normal Bowel Sounds, Soft. absent: Tenderness - Neurological Exam Neurological exam: Alert, Oriented x3 - Psychiatric Exam Psychiatric exam: Normal Affect (CIWA Score 0), Normal Mood - Skin Skin Exam: Normal Color, Warm Discharge Plan - Discharge Medications Prescriptions: Nicotine 21 mg/24 hr [Nicoderm Cq] 1 patch TD DAILY #30 patch predniSONE [predniSONE Tab] 30 mg PO DAILY #13 tab Tiotropium [Spiriva] 18 mcg INH DAILY #1 cap - Follow Up Plan Condition: FAIR Disposition: HOME/ ROUTINE Patient education suggested?: Yes Instructions: How to Stop Smoking (DC), Cigarette Smoking and Your Health (GEN) , COPD (Chronic Obstructive Pulmonary Disease) (DC) Referrals: Addi Elizondo MD [Staff Provider] -
[2016-10-12 08:18] VITALS: BP 133/83; PULSE 79; RESP 20; TEMP 97.4; O2SAT 93
[2016-10-12] MEDS ORDERED: Fluticasone-Salmeterol 250-50mcg Diskus IH SCH (09:00)
[2016-10-12] MEDS: Enoxaparin 40 mg Syringe SC SCH (09:56)
[2016-10-12] MEDS: Promethazine DM 12.5 mg-30 mg/10 ml Syrup PO PRN (09:56)
[2016-10-12] MEDS: Pantoprazole 40 mg EC Tab PO SCH (09:58)
[2016-10-12] MEDS: Tiotropium 18 mcg Cap For Inhalation INH SCH (09:58)
[2016-10-12] MEDS: methylPREDNISolone 30 MG in Sodium Chloride 0.9% 50 ML IVPB SCH (10:03)
== END 2016-10-12 12:22 | disposition home or self-care (01) | DRG 88 ==
LOC: H.ER 06:47 → H.ERHOLD 11:02 → H.MEDSURG1 11:55 → OBSVTOIN 10-08 09:03
PROVIDERS: ADMIT Internal Medicine; ATTEND Internal Medicine
DX: J44.1 Chronic obstructive pulmonary disease with (acute) exacerbation (principal); F32.9 Major depressive disorder, single episode, unspecified; E86.0 Dehydration; G47.30 Sleep apnea, unspecified; Z71.6 Tobacco abuse counseling; F17.210 Nicotine dependence, cigarettes, uncomplicated; F10.10 Alcohol abuse, uncomplicated; Y90.9 Presence of alcohol in blood, level not specified

== ENCOUNTER 2016-11-14 09:49 | Emergency (ER) | payer MEDICAID, OTHER ==
[2016-11-14 09:56] VITALS: BP 132/79; O2SAT 98; BMI 27.8
--- NOTE | 2016-11-14 10:33 | ED PDOC ---
Lower Extremity Pain/Injury Time Seen by Provider: 11/14/16 10:07 Chief Complaint (Nursing): Lower Extremity Problem/Injury Chief Complaint (Provider): right foot pain History Per: Patient Additional Complaint(s): 56 year old male with history of chronic right foot pain presents to ED with pain to right foot that started yesterday. Patient denies any fall or trauma. He states last year he was diagnosed with right foot stress fracture. Patient states he walks for several miles per day. Patient denies any fever or chills. No meds taken for pain relief. Past Medical History Reviewed: Historical Data, Nursing Documentation, Vital Signs Vital Signs: Last Vital Signs Temp 97 F L 11/14/16 09:55 Pulse 103 H 11/14/16 09:55 Resp BP 132/79 11/14/16 09:55 Pulse Ox 98 11/14/16 10:01 - Medical History PMH: Back Problems, COPD, Depression, Sleep Apnea - Family History Family History: States: No Known Family Hx - Living Arrangements Living Arrangements: Other (lives in penit[facility]) - Social History Current smoker - smoking cessation education provided: Yes (5-6 cigarettes per day) Alcohol: None Drugs: Other (h/o heroin and etoh abuse) - Home Medications Home Medications: Ambulatory Orders Medication Instructions Recorded Albuterol HFA [Ventolin HFA 90 2 puff IH Q4H #1 puff 09/24/16 mcg/actuation (8 g)] Tiotropium [Spiriva] 18 mcg INH DAILY #1 cap 10/12/16 Fluticasone/Salmeterol 250/50 1 puff INH RQ12 #1 puff 11/06/16 [Advair Diskus 250/50] Montelukast [Singulair] 10 mg PO HS #30 tab 11/06/16 Moxifloxacin [Avelox] 400 mg PO DAILY #7 tab 11/06/16 Ibuprofen [Motrin] 600 mg PO Q6 PRN #15 tab 11/14/16 - Allergies Allergies/Adverse Reactions: Allergies Allergy/AdvReac Type Severity Reaction Status Date / Time No Known Allergies Allergy Verified 10/29/16 14:59 Wells Criteria for PE - Wells Criteria for Pulmonary Embolism Clinical Signs and Symptoms of DVT: No P.E is #1 Diagnosis, or Equally Likely: No Heart Rate >100: No Immobilization at least 3 days;Surgery previous 4 weeks: No Previous, objectively diagnosed PE or DVT: No Hemoptysis: No Malignancy w/treatment within 6 months, or palliative: No Total Score: 0 Review of Systems ROS Statement: Except As Marked, All Systems Reviewed And Found Negative Constitutional: Negative for: Fever Musculoskeletal: Positive for: Foot Pain (right foot pain x 1 day, denies any trauma or injury) Physical Exam - Reviewed Nursing Documentation Reviewed: Yes Vital Signs Reviewed: Yes - Physical Exam Appears: Positive for: Well, Non-toxic, No Acute Distress Skin: Negative for: Rash Eye Exam: Positive for: Normal appearance Extremity: Positive for: Other (mild tenderness dorsum of right foot, no STS or ecchymosis, palpable DP pulse, nontender right ankle, swelling or tenderness, normal capillary refill, normal distal sensation) Neurologic/Psych: Positive for: Alert, Oriented - ECG O2 Sat by Pulse Oximetry: 98 Pulse Ox Interpretation: Normal - Other Rad right foot x-ray X-Ray: Interpreted by Me, Viewed By Me X-Ray Interpretation: no fx, no dis Medical Decision Making Medical Decision Makin56 year old with atraumatic right foot pain x 1 day Plan: PO motrin X-ray right foot Patient aware of x-ray results. Motrin dose did help the pain. Crutches declined. See procedure note. Rx motrin given along with referral to podiatry clinic. Procedures - Splinting Location: Right foot Pre-Made Type: hrash wrap and orthoh shoe Pre-Proc Neuro Vasc Exam: normal Post-Proc Neuro Vasc Exam: normal Disposition - Clinical Impression Clinical Impression: Foot sprain - Patient ED Disposition Is Patient to be Admitted: No Counseled Patient/Family Regarding: Studies Performed, Diagnosis, Need For Followup, Rx Given - Disposition Referrals: Podiatry Clinic [Outside] Disposition: Routine/Home Disposition Time: 12:22 Condition: STABLE Additional Instructions: Ice, rest and elevate affected area. Take prescription meds as directed as needed for pain. Follow-up with podiatry clinic in 2-3 days. Prescriptions: Ibuprofen [Motrin] 600 mg PO Q6 PRN #15 tab PRN Reason: Pain, Moderate (4-7) Instructions: Foot Sprain (ED)
--- NOTE | 2016-11-14 12:21 | RAD ---
PROCEDURE: Right Foot Radiographs. HISTORY: pain COMPARISON: None. FINDINGS: BONES: Normal. No fracture. JOINTS: Normal. SOFT TISSUES: Normal. OTHER FINDINGS: None. IMPRESSION: Normal right foot radiographs.
[2016-11-14 12:47] VITALS: PULSE 76; TEMP 98
== END 2016-11-14 12:48 | disposition home or self-care (01) ==
LOC: H.ER 09:49
DX: S93.601A Unspecified sprain of right foot, initial encounter (principal); X50.9XXA Other and unspecified overexertion or strenuous movements or postures, initial encounter; Y92.89 Other specified places as the place of occurrence of the external cause; F17.210 Nicotine dependence, cigarettes, uncomplicated; F32.9 Major depressive disorder, single episode, unspecified; G47.30 Sleep apnea, unspecified; J44.9 Chronic obstructive pulmonary disease, unspecified

== ENCOUNTER 2017-02-19 20:07 | Inpatient (IN) | payer MEDICAID, OTHER ==
[2017-02-19 20:08] VITALS: BMI 27.6
[2017-02-19 20:53] VITALS: O2SAT 97
--- NOTE | 2017-02-19 21:31 | ED PDOC ---
HPI: Psych/Substance Abuse Time Seen by Provider: 02/19/17 21:03 Chief Complaint (Nursing): Psychiatric Evaluation Chief Complaint (Provider): Psychiatric Evaluation History Per: Patient History/Exam Limitations: no limitations Onset/Duration Of Symptoms: Hrs Current Symptoms Are (Timing): Still Present Additional Complaint(s): 56 y/o male presents to the emergency department with a complaint of depression , hopelessness, anxiety, and suicidal thoughts. Admits to drinking alcohol earlier today, and sniffing several bags of heroin yesterday, 02/18/2017. Denies homicidal ideation, fever, and chills. Past Medical History Reviewed: Historical Data, Nursing Documentation, Vital Signs Vital Signs: Last Vital Signs Temp 98.0 F 02/19/17 20:49 Pulse 94 H 02/19/17 20:49 Resp 18 02/19/17 20:49 BP Pulse Ox 97 02/19/17 20:49 - Medical History PMH: Back Problems, COPD, Depression, Emphysema, Pneumonia, Sleep Apnea Denies: Diabetes, Hepatitis, HIV, HTN, Seizures, Sexually Transmitted Disease - Family History Family History: States: Unknown Family Hx - Social History Alcohol: > 2 Drinks/Day Drugs: Other - Immunization History Hx Tetanus Toxoid Vaccination: No Hx Influenza Vaccination: No Hx Pneumococcal Vaccination: Yes - Home Medications Home Medications: Ambulatory Orders Medication Instructions Recorded Albuterol HFA [Ventolin HFA 90 1 puff INH PRN PRN 01/14/17 mcg/actuation (8 g)] Albuterol Sulfate [Proair Hfa] 1 puff INH DAILY 01/14/17 Alprazolam [Xanax] 1 tab PO BID 01/14/17 Budesonide/Formoterol Fumarate 1 puff IN BID 01/14/17 [Symbicort 80-4.5 Mcg Inhaler] Headache Relief Pm Tablet 2 tab PO HS 01/14/17 Montelukast [Singulair] 10 mg PO HS 01/14/17 Zolpidem Tartrate [Ambien] 10 mg PO HS 01/14/17 Albuterol HFA [Ventolin HFA 90 1 puff INH RQ4 PRN #1 inhaler 01/17/17 mcg/actuation (8 g)] Budesonide [Pulmicort Respules] 0.25 mg INH RQ12 #1 08/03/17 Finasteride [Proscar] 5 mg PO DAILY #30 tab 01/17/17 Montelukast [Singulair] 10 mg PO HS tab 01/17/17 QUEtiapine [Seroquel] 100 mg PO HS #30 tab 01/17/17 traZODone [Desyrel] 100 mg PO HS PRN #30 tab 01/17/17 - Allergies Allergies/Adverse Reactions: Allergies Allergy/AdvReac Type Severity Reaction Status Date / Time No Known Allergies Allergy Verified 01/14/17 17:24 Review of Systems ROS Statement: Except As Marked, All Systems Reviewed And Found Negative Constitutional: Negative for: Fever, Chills Psych: Positive for: Anxiety, Depression, Suicidal ideation (Thoughts). Negative for: Other (Homicidal ideation) Physical Exam - Reviewed Nursing Documentation Reviewed: Yes Vital Signs Reviewed: Yes - Physical Exam Appears: Positive for: Non-toxic, No Acute Distress Head Exam: Positive for: ATRAUMATIC, NORMAL INSPECTION, NORMOCEPHALIC Skin: Positive for: Normal Color, Warm, Dry Eye Exam: Positive for: Normal appearance Neck: Positive for: Normal, Supple Cardiovascular/Chest: Positive for: Regular Rate, Rhythm. Negative for: Murmur Respiratory: Positive for: Normal Breath Sounds. Negative for: Accessory Muscle Use, Wheezing, Respiratory Distress Gastrointestinal/Abdominal: Positive for: Normal Exam, Soft. Negative for: Tenderness Extremity: Positive for: Normal ROM. Negative for: Pedal Edema Neurologic/Psych: Positive for: Alert, Oriented (x3), Mood/Affect (Flat affect with poor eye contact and poor judgement. ), Other (Clear speech) - Laboratory Results Result Diagrams: 02/19/17 21:40 02/19/17 21:40 - ECG O2 Sat by Pulse Oximetry: 97 (RA) Pulse Ox Interpretation: Normal Medical Decision Making Medical Decision Making: Time: 2100 Initial impression: Depression status post alcohol and substance abuse, Psychiatric Evaluation. Initial plan: --Alcohol Serum --CMP --Drug Screen, Urine --CBC w/ diff --Urinalysis --Crisis Evaluation As Ordered --Reevaluation labs reviewed CXR no acute disease on my evaluation EKG NSR without ST changes etoh neg labs unremarkable Utox +opiates +benzos but remains awake without evidence of acute toxidrome Time: 2309 Pt seen and evaluated by crisi team; patient to be admitted under Dr. Pringle for depression. Medically stable for adult psychiatric admission at this time. Scribe Attestation: Documented by Verenice Aguilera, acting as a scribe for Ottoniel Novoa MD. Provider Scribe Attestation: All medical record entries made by the Scribe were at my direction and personally dictated by me. I have reviewed the chart and agree that the record accurately reflects my personal performance of the history, physical exam, medical decision making, and the department course for this patient. I have also personally directed, reviewed, and agree with the discharge instructions and disposition. Disposition - Clinical Impression Clinical Impression: Depression, Suicidal ideation - Patient ED Disposition Is Patient to be Admitted: Yes - Disposition Disposition Time: 22:15 Condition: FAIR - Pt Status Changed To: Hospital Disposition Of: Inpatient - Admit Certification Admit to Inpatient:: After my assessment, the patient will require hospitalization for at least two midnights. This is because of the severity of symptoms shown, intensity of services needed, and/or the medical risk in this patient being treated as an outpatient. - POA Present On Arrival: None
[2017-02-19 21:45] LABS: BASO # 0.1 K/uL (0.0-0.2); EOS # 0.4 K/uL (0.0-0.7); HEMATOCRIT 37.8 % (35.0-51.0); LYMPH # 2.6 K/uL (1.0-4.3); LYMPH % 30.3 % (20.0-40.0); MEAN CELL VOLUME 91.8 fl (80.0-94.0); MEAN CORPUSCULAR HEMOGLOBIN 30.5 pg (27.0-31.0); MEAN CORPUSCULAR HGB CONC 33.2 g/dL (33.0-37.0); MEAN PLATELET VOLUME 7.9 fl (7.2-11.7); NEUT # 4.3 K/uL (1.8-7.0); NEUT % 51.7 % (50.0-75.0); RED CELL DISTRIBUTION WIDTH 13.6 % (11.5-14.5); WHITE BLOOD COUNT 8.4 K/uL (4.8-10.8)
[2017-02-19 22:00] LABS: ALB/GLOB RATIO 1.8 (1.0-2.1); ALCOHOL SERUM < 10 mg/dl (0-10); ALKALINE PHOSPHATASE 46 U/L (38-126); ALT/SGPT 32 U/L (21-72); AST/SGOT 34 U/L (17-59); BILIRUBIN,TOTAL 0.5 mg/dl (0.2-1.3); BLOOD UREA NITROGEN 11 mg/dl (9-20); CALCIUM 9.1 mg/dL (8.4-10.2); CARBON DIOXIDE 26 mmol/L (22-30); CHLORIDE 103 mmol/L (98-107); GFR AFRICAN-AMERICAN > 60; GLUCOSE,RANDOM 98 mg/dL (75-110); POTASSIUM 3.7 MMOL/L (3.6-5.0); SODIUM 137 mmol/l (132-148); TOTAL PROTEIN 6.5 G/DL (6.3-8.2)
[2017-02-19 23:39] LABS: RBC URINE < 1 /hpf (0-3); URINE BILIRUBIN NEGATIVE (NEGATIVE); URINE BLOOD NEGATIVE (NEGATIVE); URINE COLOR YELLOW (YELLOW); URINE GLUCOSE (UA) NEG (Normal); URINE KETONE NEGATIVE (NEGATIVE); URINE LEUKOCYTE ESTERASE NEG Leu/uL (Negative); URINE PROTEIN NEGATIVE (NEGATIVE); URINE UROBILINOGEN 0.2-1.0 mg/dL (0.2-1.0); WBC URINE 1 /hpf (0-5)
[2017-02-20] MEDS ORDERED: Magnesium Hydroxide Susp 30 ml UD PO PRN (00:31)
[2017-02-20] MEDS ORDERED: DiphenhydrAMINE 50 mg/ml Inj IM PRN (00:31)
[2017-02-20] MEDS ORDERED: Alum-Mag Hydrox-Simethicone Susp (30 mL) PO PRN (00:31)
[2017-02-20] MEDS ORDERED: Albuterol HFA 90 mcg/actuation (8 g) INH PRN ×2 (01:07)
--- NOTE | 2017-02-20 01:55 | PCM.BM ---
<Cody Marquez - Last Filed: 02/20/17 01:53> Treatment Plan Problems - Problems identified on initial assessmt Hopelessness/Helplessness Date Initiated: 02/20/17 Time Initiated: 01:54 Assessment reference: NA Status: Active Priority: 1 Feeling of Worthlessness Date Initiated: 02/20/17 Time Initiated: 01:55 Assessment reference: NA Status: Active Priority: 2 Treatment assets and liabiliti Patient Assests: ADL independent, negotiates basic needs, cognitively intact Patient Liabilities: financial problems, substance abuse, medical problems - Milieu Protocol Maintain good personal hygiene: daily Encourage regular showers, daily Remind patient to perform daily oral care, daily Assist patient to perform ADL's Maintain personal safety: every shift Educate patient to report safety concerns to staff, every shift Monitor environment for contraband/sharps Medication safety: Monitor for expected outcome, potential side effects: every shift, Assess barriers to learning: every shift, Assess readiness for medication education: every shift <Luisa Mcnamara - Last Filed: 02/21/17 15:48> Treatment assets and liabiliti Patient Assests: adapts well, cooperative, resourceful, ADL independent, negotiates basic needs Patient Liabilities: financial problems, poor support system, relationship conflicts, substance abuse, medical problems Family Contact Family contact comment: Patient reports poor family/social supports. Patient denies having communication with family, ex- or daughter. - Goals for Treatment Patient goals for treatment: Patient to be encouraged to attend 3-5 groups a week to identify at least 2 contributing factors to worsening depression and continued substance abuse. Patient to be encouraged to participate in group milieu to develop appropriate/effective coping skills, improve insight and promote compliance and sobriety. Patient to continue stabilization on 3NP through medication management and group/supportive therapy to decrease AH and eliminate SI. Discharge/Continuing Care - Education Needs Education Needs: Patient Medication, Patient Diagnosis/Disease Process, Patient Coping Skills, Patient Community resources, Patient Health Practices/Safety, Patient Aftercare Safety Plan - Discharge Discharge Criteria: Tolerates medication w/o severe side effects, Free of Suicidal thoughts, Normal sleep pattern, Ability to care for self, No longer exhibiting s/s of withdrawal, Reduction of target symptoms [facility] to:: [facility] - Additional Comments 02/21/17 15:53 Patient currently ambivalent regarding inpatient rehab referrals but has agreed to outpatient substance abuse services with [facility]. <Carine Rosas - Last Filed: 02/25/17 11:43> Discharge/Continuing Care - Additional Comments 02/25/17 11:36 Pt seen and discussed in team meeting. Pt scheduled for discharge today. Pt's after care follow up discussed. Pt agreeable with after care follow up. Pt reported post discharge he will be attending AA meetings. Pt's medications reviewed and discussed. Pt provided with psycho-education regarding importance of medication and treatment compliance. - Treatment Team Participation Discussed with Family/SO: No Was Patient/Family/SO present at Treatment Team Meeting: Yes
--- NOTE | 2017-02-20 11:17 | RAD ---
HISTORY: Medical clearance COMPARISON: 10/07/2016. FINDINGS: LUNGS: No active pulmonary disease. PLEURA: No significant pleural effusion identified, no pneumothorax apparent. CARDIOVASCULAR: Normal. OSSEOUS STRUCTURES: No significant abnormalities. VISUALIZED UPPER ABDOMEN: Normal. OTHER FINDINGS: None. IMPRESSION: No active disease. No significant interval change compared to the prior examination(s).
--- NOTE | 2017-02-20 11:21 | PCM.PSYCH ---
Initial Psychiatric Evaluation - Initial Psychiatric Evaluation Type of Admission: Voluntary Legal Status: Capacity Chief Complaint (in patient's own words): i started thinking crazy! Patient's Reaction to Hospitalization: cooperative History of Present Illness and Precipitating Events: 56 yo male with history of depression, opioid and alcohol use disorders. he is homeless. he was at [facility] rehab and left to [facility] about a month ago, pt states he came into some money and started using alcohol and heroin immediately after discharge and never went to the intake. he reports he has become more depressed, hopeless and has started to have instrusive suicidal thoughts which he states are like a voice telling him to "go to [place] and jump in front of a train." he denies current withdrawal symptoms. he is estranged from his exwife and daughter. he is not working and has no source of income. he denies legal problems. Current Medications: Active Medications Generic Name Dose Route Start Last Admin Trade Name Freq PRN Reason Stop Dose Admin Acetaminophen 650 mg 02/20/17 00:31 Tylenol 325mg Tab PO Q4 PRN Pain, moderate (4-7) Al Hydrox/Mg Hydrox/Simethicone 30 ml 02/20/17 00:31 Maalox Plus 30 Ml PO Q4 PRN Dyspepsia Albuterol 1 puff 02/20/17 01:07 Ventolin Hfa 90 Mcg/Actuation (8 G) INH RQ4 PRN SOB Clonidine HCl 0.1 mg 02/20/17 17:00 Catapres PO 02/23/17 17:01 Q8 FAHEEM Cyclobenzaprine HCl 10 mg 02/20/17 11:09 Flexeril PO TID PRN Muscle spasm Diphenhydramine HCl 50 mg 02/20/17 00:31 Benadryl IM Q6 PRN Extrapyramidal S/S Unable PO Diphenhydramine HCl 50 mg 02/20/17 00:35 Benadryl PO HS PRN Sleep Folic Acid 1 mg 02/20/17 11:15 Folic Acid PO DAILY FAHEEM Gabapentin 300 mg 02/20/17 13:00 Neurontin PO TID FAHEEM Haloperidol 5 mg 02/20/17 00:31 Haldol PO Q4 PRN Agitation Haloperidol Lactate 5 mg 02/20/17 00:31 Haldol IM Q4 PRN Agitation, Unable to Take PO Loperamide HCl 2 mg 02/20/17 11:09 Imodium PO QID PRN Loose stools Lorazepam 2 mg 02/20/17 00:31 Ativan IM Q4 PRN Anxiety/Agitation,Unable PO Lorazepam 1 mg 02/20/17 00:31 Ativan PO Q4 PRN Anxiety/Agitation Lorazepam 1 mg 02/20/17 17:00 Ativan PO BIDHS FAHEEM Magnesium Hydroxide 30 ml 02/20/17 00:31 Milk Of Magnesia PO HS PRN Constipation Multivitamins/Minerals 1 tab 02/20/17 11:15 Therapeutic-M Tab PO DAILY FAHEEM Ondansetron HCl 4 mg 02/20/17 11:08 Zofran Tab PO Q4 PRN Nausea/Vomiting Thiamine HCl 100 mg 02/20/17 11:15 Vitamin B1 Tab PO DAILY FAHEEM was on seroquel and trazodone when discharged from [facility] Past Psychiatric History - Past Psychiatric History Previous Treatment History: Inpatient Prior Professional Help: recent detox at [facility] History of Abuse: denies History of ETOH/Drug Use: drinks- 15 beers, 1 pint of hard liquor daily for past month. snorts 4-5 bags of heroin daily. smokes 5 cigarettes daily. History of Family Illness: unknown Pertinent Medical Hx (Current Medical&Sleep Prob, Allergies): Allergies Allergy/AdvReac Type Severity Reaction Status Date / Time No Known Allergies Allergy Verified 01/14/17 17:24 Albuterol HFA [Ventolin HFA 90 mcg/actuation (8 g)] 1 puff INH PRN PRN 01/14/17 Albuterol Sulfate [Proair Hfa] 1 puff INH DAILY 01/14/17 Alprazolam [Xanax] 1 tab PO BID 01/14/17 Budesonide/Formoterol Fumarate [Symbicort 80-4.5 Mcg Inhaler] 1 puff IN BID Headache Relief Pm Tablet 2 tab PO HS 01/14/17 Montelukast [Singulair] 10 mg PO HS 01/14/17 Zolpidem Tartrate [Ambien] 10 mg PO HS 01/14/17 Albuterol HFA [Ventolin HFA 90 mcg/actuation (8 g)] 1 puff INH RQ4 PRN #1 inhaler 01/17/17 Budesonide [Pulmicort Respules] 0.25 mg INH RQ12 #1 01/17/17 Finasteride [Proscar] 5 mg PO DAILY #30 tab 01/17/17 Montelukast [Singulair] 10 mg PO HS tab 01/17/17 QUEtiapine [Seroquel] 100 mg PO HS #30 tab 01/17/17 traZODone [Desyrel] 100 mg PO HS PRN #30 tab 01/17/17 copd Review of Systems - Psychiatric Psychiatric: As Per [facility] Mental Status Examination - Personal Presentation Personal Presentation: Looks stated age - Affect Affect: Constricted - Motor Activity Motor Activity: Calm - Reliability in Providing Information Reliability in Providing Information: Good - Speech Speech: Organized - Mood Mood: Depressed - Formal Thought Process Formal Thought Process: Hallucinations (reports vernon stephens, that may be his own thoughts) - Obsessions/Compulsions Obsessions: No Compulsions: No - Cognitive Functions Orientation: Person, Place, Situation, Time Sensorium: Alert Attention/Concentration: Attentive Abstract Thinking: [place] Estimate of Intelligence: Average Judgement: Intact, as evidence by: Insight regarding need for hospitalization Memory: Recent intact, as evidence by: Ability to recall events of the day, Remote intact, as evidenced by: Abilit to recall sig. life events - Risk Risk: Suicidal (reports thoughts, now he feels safe. no intent. no recent attempts), Diminished functioning - Strength & Assets Inventory Strength & Assets Inventory: Intelligence - Limitations Limitations: Other (lack of housing) DSM 5 DX - DSM 5 DSM 5 Diagnosis: alcohol use disorder opioid use disorder depression unspecified - Recommended/Plan of Treatment Treatment Recommendations and Plan of Treatment: admit to 3 for safety and observation gather collateral information provide supportive therapy adjust medicationss- see orders- will restart meds from most recent stay at [facility]. detox meds. medical doctor consulted to manage copd and other medical needs disposition planning Projected ELOS: 3-5 days Prognosis: fair - Smoking Cessation Smoking Cessation Initiated: Yes
[2017-02-20] MEDS: Multivitamin With Minerals Tab PO SCH (12:06)
--- NOTE | 2017-02-20 13:44 | CP.PCM.CON ---
<Master Aquino - Last Filed: 02/20/17 15:12> History of Present Illness - History of Present Illness History of Present Illness: Medicine consult 56 year old male with PMH of COPD that presented with complaints of depression, hopelessness, anxiety, and suicidal thoughts. He does not currently have any withdrawal symptoms of tremor, nausea, vomiting, diarrhea, anxiety. His COPD is currently managed with Ventolin. Previously on advair/symbicort, however patient unable to obtain medications since not covered by insurance. He denies any fevers, cough, sputum production, shortness of breath, chest pain , pedal edema. but admits he is currently wheezing. He declined breathing treatment or use of pump during this evaluation. PMH: COPD, polysubstance abuse Medications: Ventolin Allergies: NKDA Social: current smoker 1 PPD, alcohol and heroin abuse Past Patient History - Infectious Disease Hx of Infectious Diseases: None - Tetanus Immunizations Tetanus Immunization: Unknown - Past Medical History & Family History Past Medical History?: Yes - Past Social History Alcohol: > 2 Drinks/Day Drugs: Other - CARDIAC Hx Hypertension: No - PULMONARY Hx Chronic Obstructive Pulmonary Disease (COPD): Yes Hx Emphysema: Yes Hx Pneumonia: Yes Hx Sleep Apnea: Yes - NEUROLOGICAL Hx Seizures: No - HEENT Hx HEENT Problems: No - RENAL Hx Dialysis: No - ENDOCRINE/METABOLIC Hx Endocrine Disorders: No - HEMATOLOGICAL/ONCOLOGICAL Hx Human Immunodeficiency Virus (HIV): No - INTEGUMENTARY Hx Dermatological Problems: No - MUSCULOSKELETAL/RHEUMATOLOGICAL Hx Falls: No - GASTROINTESTINAL Hx Gastrointestinal Disorders: No - GENITOURINARY/GYNECOLOGICAL Hx Sexually Transmitted Disorders: No - PSYCHIATRIC Hx Depression: Yes Hx Substance Use: Yes (use heroin everyday) - SURGICAL HISTORY Hx Surgeries: No - ANESTHESIA Hx Anesthesia: No Meds Allergies/Adverse Reactions: Allergies Allergy/AdvReac Type Severity Reaction Status Date / Time No Known Allergies Allergy Verified 01/14/17 17:24 - Medications Medications: Current Medications Acetaminophen (Tylenol 325mg Tab) 650 mg PO Q4 PRN PRN Reason: Pain, moderate (4-7) Al Hydrox/Mg Hydrox/Simethicone (Maalox Plus 30 Ml) 30 ml PO Q4 PRN PRN Reason: Dyspepsia Albuterol (Ventolin Hfa 90 Mcg/Actuation (8 G)) 1 puff INH RQ4 PRN PRN Reason: SOB Clonidine HCl (Catapres) 0.1 mg PO Q8 [facility] Stop: 02/23/17 17:01 Cyclobenzaprine HCl (Flexeril) 10 mg PO TID PRN PRN Reason: Muscle spasm Diphenhydramine HCl (Benadryl) 50 mg IM Q6 PRN PRN Reason: Extrapyramidal S/S Unable PO Diphenhydramine HCl (Benadryl) 50 mg PO HS PRN PRN Reason: Sleep Folic Acid (Folic Acid) 1 mg PO DAILY [facility] Last Admin: 02/20/17 12:06 Dose: 1 mg Gabapentin (Neurontin) 300 mg PO TID [facility] Haloperidol (Haldol) 5 mg PO Q4 PRN PRN Reason: Agitation Haloperidol Lactate (Haldol) 5 mg IM Q4 PRN PRN Reason: Agitation, Unable to Take PO Loperamide HCl (Imodium) 2 mg PO QID PRN PRN Reason: Loose stools Lorazepam (Ativan) 2 mg IM Q4 PRN PRN Reason: Anxiety/Agitation,Unable PO Lorazepam (Ativan) 1 mg PO Q4 PRN PRN Reason: Anxiety/Agitation Last Admin: 02/20/17 12:06 Dose: 1 mg Lorazepam (Ativan) 1 mg PO BIDHS [facility] Magnesium Hydroxide (Milk Of Magnesia) 30 ml PO HS PRN PRN Reason: Constipation Multivitamins/Minerals (Therapeutic-M Tab) 1 tab PO DAILY [facility] Last Admin: 02/20/17 12:06 Dose: 1 tab Nicotine (Nicoderm Cq) 1 patch TD DAILY [facility] Last Admin: 02/20/17 12:08 Dose: Not Given Ondansetron HCl (Zofran Tab) 4 mg PO Q4 PRN PRN Reason: Nausea/Vomiting Thiamine HCl (Vitamin B1 Tab) 100 mg PO DAILY [facility] Last Admin: 02/20/17 12:06 Dose: 100 mg Physical Exam - Constitutional Appears: No Acute Distress (lying in bed, sleeping but arousable, cooperative with exam) - Head Exam Head Exam: NORMAL INSPECTION - Eye Exam Eye Exam: Normal appearance - ENT Exam ENT Exam: Mucous Membranes Moist - Respiratory Exam Respiratory Exam: Wheezes (diffuse , dry cough with deep inspiration), NORMAL BREATHING PATTERN. absent: Accessory Muscle Use, Chest Wall Tenderness, Decreased Breath Sounds, Rales, Rhonchi, Respiratory Distress, Stridor - Cardiovascular Exam Cardiovascular Exam: REGULAR RHYTHM, +S1, +S2. absent: Bradycardia, Tachycardia Additional comments: distant heart sounds - GI/Abdominal Exam GI & Abdominal Exam: Normal Bowel Sounds, Soft. absent: Diminished Bowel Sounds , Distended, Guarding, Tenderness - Rectal Exam Rectal Exam: Deferred - Neurological Exam Neurological exam: CN II-XII Intact Additional comments: gait not assessed - Skin Skin Exam: Dry, Intact Results - Vital Signs Recent Vital Signs: Last Vital Signs Temp 97.3 F L 02/20/17 09:00 Pulse 71 02/20/17 09:00 Resp 18 02/20/17 09:00 BP 141/89 02/20/17 09:00 Pulse Ox 97 02/20/17 00:55 - Labs Result Diagrams: 02/19/17 21:40 02/19/17 21:40 Labs: Laboratory Results - last 24 hr 02/19/17 02/19/17 23:33 23:33 Urine Color Yellow Urine Clarity Clear Urine pH 5.0 Ur Specific [place] 1.018 Urine Protein Negative Urine Glucose (UA) Neg Urine Ketones Negative Urine Blood Negative Urine Nitrate Negative Urine Bilirubin Negative Urine Urobilinogen 0.2-1.0 Ur Leukocyte Esterase Neg Urine RBC (Auto) < 1 Urine Microscopic WBC 1 Urine Opiates Screen Positive H Urine Methadone Screen Negative Ur Barbiturates Screen Negative Ur Phencyclidine Scrn Negative Ur Amphetamines Screen Negative U Benzodiazepines Scrn Positive H U Oth Cocaine Metabols Negative U Cannabinoids Screen Negative Assessment & Plan - Assessment and Plan (Free Text) Assessment: 56 year old male with pmh of COPD and hx of polysubstance abuse admitted for depression with suicidal ideations. For his COPD will continue with ventolin PRN. He is not in respiratory distress and has not complaints of SOB. His depression and SI will be managed by psychiatry. Will d/w attending. <Addi Elizondo - Last Filed: 02/21/17 14:07> Meds - Medications Medications: Current Medications Acetaminophen (Tylenol 325mg Tab) 650 mg PO Q4 PRN PRN Reason: Pain, moderate (4-7) Al Hydrox/Mg Hydrox/Simethicone (Maalox Plus 30 Ml) 30 ml PO Q4 PRN PRN Reason: Dyspepsia Albuterol (Ventolin Hfa 90 Mcg/Actuation (8 G)) 1 puff INH RQ4 PRN PRN Reason: SOB Clonidine HCl (Catapres) 0.1 mg PO Q8 [facility] Stop: 02/23/17 17:01 Last Admin: 02/21/17 09:01 Dose: 0.1 mg Cyclobenzaprine HCl (Flexeril) 10 mg PO TID PRN PRN Reason: Muscle spasm Last Admin: 02/21/17 09:03 Dose: 10 mg Diphenhydramine HCl (Benadryl) 50 mg IM Q6 PRN PRN Reason: Extrapyramidal S/S Unable PO Diphenhydramine HCl (Benadryl) 50 mg PO HS PRN PRN Reason: Sleep Folic Acid (Folic Acid) 1 mg PO DAILY [facility] Last Admin: 02/21/17 09:01 Dose: 1 mg Gabapentin (Neurontin) 300 mg PO TID [facility] Last Admin: 02/21/17 12:34 Dose: 300 mg Haloperidol (Haldol) 5 mg PO Q4 PRN PRN Reason: Agitation Haloperidol Lactate (Haldol) 5 mg IM Q4 PRN PRN Reason: Agitation, Unable to Take PO Loperamide HCl (Imodium) 2 mg PO QID PRN PRN Reason: Loose stools Lorazepam (Ativan) 2 mg IM Q4 PRN PRN Reason: Anxiety/Agitation,Unable PO Lorazepam (Ativan) 1 mg PO Q4 PRN PRN Reason: Anxiety/Agitation Last Admin: 02/20/17 12:06 Dose: 1 mg Lorazepam (Ativan) 1 mg PO BIDHS [facility] Last Admin: 02/21/17 09:00 Dose: 1 mg Magnesium Hydroxide (Milk Of Magnesia) 30 ml PO HS PRN PRN Reason: Constipation Multivitamins/Minerals (Therapeutic-M Tab) 1 tab PO DAILY [facility] Last Admin: 02/21/17 09:00 Dose: 1 tab Nicotine (Nicoderm Cq) 1 patch TD DAILY [facility] Last Admin: 02/21/17 12:33 Dose: 1 patch Ondansetron HCl (Zofran Tab) 4 mg PO Q4 PRN PRN Reason: Nausea/Vomiting Quetiapine Fumarate (Seroquel) 100 mg PO HS [facility] Thiamine HCl (Vitamin B1 Tab) 100 mg PO DAILY [facility] Last Admin: 02/21/17 09:01 Dose: 100 mg Results - Vital Signs Recent Vital Signs: Last Vital Signs Temp 97.3 F L 02/21/17 09:00 Pulse 80 02/21/17 09:01 Resp 18 02/21/17 09:00 BP 115/84 02/21/17 09:01 Pulse Ox 97 02/20/17 00:55 - Labs Result Diagrams: 02/19/17 21:40 02/19/17 21:40 Labs: Laboratory Results - last 24 hr 02/21/17 02/21/17 02/21/17 07:30 07:30 07:30 Hemoglobin A1c 6.2 Triglycerides 104 Cholesterol 210 H LDL Cholesterol Direct 125 HDL Cholesterol 72 H Vitamin B12 404 Assessment & Plan - Assessment and Plan (Free Text) Assessment: Patient was personally seen and examined by me in rounds with residents. Available labs and diagnostic data reviewed. Case, Patient's condition and management plan Discussed with residents in rounds. Agree with resident's progress note. Plan: As ordered.
[2017-02-21 08:31] LABS: CHOLESTEROL 210 mg/dL (0-199)
[2017-02-21] MEDS: Multivitamin With Minerals Tab PO SCH (09:00)
--- NOTE | 2017-02-21 10:08 | PCM.PYCHPN ---
Psychiatric Progress Note - Psychiatric Progress Note Patient seen today, length of contact: discussed with team Patient Chief Complaint: i feel a little worse i guess Problems Identified/Issues Discussed: pt feels depressed, c/o poor appetite, poor sleep. feels nauseated and shaky. he is isolating in his room. Medication Change: Yes (restart seroquel) Medical Record Reviewed: Yes Mental Status Examination - Cognitive Function Orientation: Person, Place, Situation, Time Memory: Intact Attention: WNL Concentration: Poor Association: WNL Fund of Knowledge: WNL Decription of patient's judgement and insights: fair - Mood Mood: Depressed - Affect Affect: Constricted - Speech Speech: Soft - Formal Thought Process Formal Thought Process: No Impairment Psychotic Thoughts and Behaviors: denies auditory hallucinations - Suicidal Ideation Suicidal Ideation: Yes Plan: denies plan or intent - Homicidal Ideation Homicidal Ideation: No Goal/Treatment Plan - Goal/Treatment Plan Need for Continued Stay: Remain at risks for inpatient hospitalization Progress Toward Problem(s) and Goals/Treatment Plan: opioid use disorder alcohol use disorder depression unspecified continue current treatment restart seroquel will start to taper ativan tomorrow encourage participation in groups Estimated Date of D/C: 02/25/17
--- NOTE | 2017-02-21 20:38 | CP.PCM.PCO ---
Physician Communication Note - Physician Communication Note Physician Communication Note: Patient with lip blisters. #. Herpes simplex treat with Acyclovir ointment.
[2017-02-21] MEDS: Acyclovir 5% OINT 15 APPLIC/15 GM EXT SCH (21:16)
[2017-02-22] MEDS: Acyclovir 5% OINT 15 APPLIC/15 GM EXT SCH ×7 (01:26→21:33)
[2017-02-22] MEDS: Multivitamin With Minerals Tab PO SCH (09:54)
--- NOTE | 2017-02-22 11:47 | CARD ---
APPROVED REPORT EKG Measurement Heart [id number] <Conclusion> Normal sinus rhythm with sinus arrhythmia Septal infarct, age undetermined Abnormal ECG
--- NOTE | 2017-02-22 13:29 | PCM.PYCHPN ---
Psychiatric Progress Note - Psychiatric Progress Note Patient seen today, length of contact: discussed with team Patient Chief Complaint: i need to talk to you about meds Problems Identified/Issues Discussed: pt now visible in milieu. denies any withdrawal symptoms. he has showered and no longer isolating in bed. he is agreeable to tapering ativan. he asks for standing trazodone at [facility] as he was getting at [facility]. pt eating meals and participating in groups. Medication Change: Yes (start trazodone) Medical Record Reviewed: Yes Mental Status Examination - Cognitive Function Orientation: Person, Place, Situation, Time Memory: Intact Attention: WNL Concentration: WNL Association: [facility] Fund of Knowledge: [facility] Decription of patient's judgement and insights: fair Addtional comments: fair - Mood Mood: Depressed - Affect Affect: Constricted - Speech Speech: Soft - Formal Thought Process Formal Thought Process: No Impairment Psychotic Thoughts and Behaviors: denies auditory hallucinations - Suicidal Ideation Suicidal Ideation: No Plan: denies si - Homicidal Ideation Homicidal Ideation: No Goal/Treatment Plan - Goal/Treatment Plan Need for Continued Stay: Remain at risks for inpatient hospitalization Progress Toward Problem(s) and Goals/Treatment Plan: opioid use disorder alcohol use disorder depression unspecified continue current treatment continue seroquel and restart remeron continue to taper ativan encourage participation in groups Estimated Date of D/C: 02/25/17
[2017-02-23] MEDS: Acyclovir 5% OINT 15 APPLIC/15 GM EXT SCH ×8 (01:00→21:14)
[2017-02-23 07:24] LABS: T4 5.21 ug/dl (5.5-11.0)
[2017-02-23 07:38] LABS: THYROID STIMULATING HORMONE 0.99 mIU/ML (0.46-4.68)
[2017-02-23 09:08] VITALS: RESP 18
[2017-02-23] MEDS: Multivitamin With Minerals Tab PO SCH (09:40)
--- NOTE | 2017-02-23 11:33 | PCM.PYCHPN ---
Psychiatric Progress Note - Psychiatric Progress Note Patient seen today, length of contact: Patient evaluated, chart reviewed Patient Chief Complaint: "I'm okay" Problems Identified/Issues Discussed: Patient continues to report some opioid withdrawal symptoms. He reports that his mood is improving. No AH/VH/SI/HI/paranoia/delusions. No signs/symptoms of ETOH withdrawal. We discussed continued tapering of Ativan. Medication Change: Yes (Taper Ativan) Medical Record Reviewed: Yes Mental Status Examination - Cognitive Function Orientation: Person, Place, Situation, Time Memory: Intact Attention: WNL Concentration: WNL Association: WNL Fund of Knowledge: [facility] Decription of patient's judgement and insights: Fair I/J - Mood Mood: Depressed - Affect Affect: Constricted - Speech Speech: Soft - Formal Thought Process Formal Thought Process: No Impairment Psychotic Thoughts and Behaviors: No AH/VH/paranoia/delusions - Suicidal Ideation Suicidal Ideation: No - Homicidal Ideation Homicidal Ideation: No Goal/Treatment Plan - Goal/Treatment Plan Need for Continued Stay: Remain at risks for inpatient hospitalization Progress Toward Problem(s) and Goals/Treatment Plan: Opioid use disorder, alcohol use disorder, depression unspecified -Continue current medications -Taper Ativan -Individual and group therapy -Disposition planning Estimated Date of D/C: 02/25/17
--- NOTE | 2017-02-23 19:24 | CP.PCM.PN ---
<Neena Urias - Last Filed: 02/23/17 19:18> Subjective - Date & Time of Evaluation Date of Evaluation: 02/23/17 - Subjective Subjective: Pt is seen and examined, watching TV, feels well, no CP or SOB, no abnormal thoughtss Objective - Vital Signs/Intake and Output Vital Signs (last 24 hours): Temp Pulse Resp BP Pulse Ox 97.4 F L 84 18 116/70 97 02/23/17 16:32 02/23/17 18:02 02/23/17 16:32 02/23/17 18:02 02/20/17 00:55 - Medications Medications: Current Medications Acetaminophen (Tylenol 325mg Tab) 650 mg PO Q4 PRN PRN Reason: Pain, moderate (4-7) Acyclovir (Zovirax 5% Oint) 1 applic EXT Q3 [facility] Stop: 02/27/17 22:01 Last Admin: 02/23/17 18:03 Dose: 1 applic Al Hydrox/Mg Hydrox/Simethicone (Maalox Plus 30 Ml) 30 ml PO Q4 PRN PRN Reason: Dyspepsia Albuterol (Ventolin Hfa 90 Mcg/Actuation (8 G)) 1 puff INH RQ4 PRN PRN Reason: SOB Last Admin: 02/22/17 09:48 Dose: 1 puff Cyclobenzaprine HCl (Flexeril) 10 mg PO TID PRN PRN Reason: Muscle spasm Last Admin: 02/23/17 09:41 Dose: 10 mg Diphenhydramine HCl (Benadryl) 50 mg IM Q6 PRN PRN Reason: Extrapyramidal S/S Unable PO Diphenhydramine HCl (Benadryl) 50 mg PO HS PRN PRN Reason: Sleep Folic Acid (Folic Acid) 1 mg PO DAILY [facility] Last Admin: 02/23/17 09:41 Dose: 1 mg Gabapentin (Neurontin) 300 mg PO TID [facility] Last Admin: 02/23/17 18:03 Dose: 300 mg Haloperidol (Haldol) 5 mg PO Q4 PRN PRN Reason: Agitation Haloperidol Lactate (Haldol) 5 mg IM Q4 PRN PRN Reason: Agitation, Unable to Take PO Loperamide HCl (Imodium) 2 mg PO QID PRN PRN Reason: Loose stools Last Admin: 02/21/17 16:25 Dose: 2 mg Lorazepam (Ativan) 2 mg IM Q4 PRN PRN Reason: Anxiety/Agitation,Unable PO Lorazepam (Ativan) 1 mg PO Q4 PRN PRN Reason: Anxiety/Agitation Last Admin: 02/20/17 12:06 Dose: 1 mg Lorazepam (Ativan) 0.5 mg PO BID [facility] Last Admin: 02/23/17 18:03 Dose: 0.5 mg Magnesium Hydroxide (Milk Of Magnesia) 30 ml PO HS PRN PRN Reason: Constipation Last Admin: 02/21/17 20:25 Dose: 30 ml Multivitamins/Minerals (Therapeutic-M Tab) 1 tab PO DAILY [facility] Last Admin: 02/23/17 09:40 Dose: 1 tab Nicotine (Nicoderm Cq) 1 patch TD DAILY [facility] Last Admin: 02/23/17 09:41 Dose: 1 patch Ondansetron HCl (Zofran Tab) 4 mg PO Q4 PRN PRN Reason: Nausea/Vomiting Quetiapine Fumarate (Seroquel) 100 mg PO HS [facility] Last Admin: 02/22/17 21:32 Dose: 100 mg Thiamine HCl (Vitamin B1 Tab) 100 mg PO DAILY [facility] Last Admin: 02/23/17 09:41 Dose: 100 mg Trazodone HCl (Desyrel) 100 mg PO HS [facility] Last Admin: 02/22/17 21:32 Dose: 100 mg - Constitutional Appears: Well, Non-toxic, No Acute Distress - Head Exam Head Exam: ATRAUMATIC - Eye Exam Eye Exam: Normal appearance - ENT Exam ENT Exam: Mucous Membranes Moist - Respiratory Exam Respiratory Exam: Clear to Ausculation Bilateral, NORMAL BREATHING PATTERN - Cardiovascular Exam Cardiovascular Exam: REGULAR RHYTHM - GI/Abdominal Exam GI & Abdominal Exam: Soft, Normal Bowel Sounds - Extremities Exam Extremities Exam: Full ROM, Normal Inspection - Back Exam Back Exam: NORMAL INSPECTION - Neurological Exam Neurological Exam: Alert, Awake, CN II-XII Intact, Oriented x3 - Psychiatric Exam Psychiatric exam: Normal Affect, Normal Mood - Skin Skin Exam: Normal Color Assessment and Plan - Assessment and Plan (Free Text) Assessment: Pt with COPD -doing well, no COPD exacerbation, continue current medical management -Depression, no abnormal thoughts, continue psyche management -medically stable above d/w dr quinones <Addi Quinones - Last Filed: 03/05/17 13:40> Subjective - Date & Time of Evaluation Time of Evaluation: 07:00 Objective - Vital Signs/Intake and Output Vital Signs (last 24 hours): Temp Pulse Resp BP Pulse Ox 96.9 F L 83 18 124/76 97 02/25/17 09:00 02/25/17 09:00 02/25/17 09:00 02/25/17 09:00 02/20/17 00:55 - Labs Labs: 02/19/17 21:40 02/19/17 21:40 Assessment and Plan - Assessment and Plan (Free Text) Assessment: Patient was personally seen and examined by me in rounds with residents. Available labs and diagnostic data reviewed. Case, Patient's condition and management plan Discussed with residents in rounds. Agree with resident's progress note. Plan: As ordered.
[2017-02-24] MEDS: Acyclovir 5% OINT 15 APPLIC/15 GM EXT SCH ×6 (01:00→20:10)
--- NOTE | 2017-02-24 09:03 | PN ---
DATE: 02/24/2017 SUBJECTIVE: The patient is seen and examined. Interim events noted. Psychiatric followup and intervention noted and appreciated. The patient is sleepy, arousable , feels okay. No specific complaint of chest pain. No shortness of breath. No withdrawal symptoms. PHYSICAL EXAMINATION GENERAL: The patient is in no acute distress. VITAL SIGNS: Stable. HEART: S1, S2, normal, regular. LUNGS: Good bilateral air exchange. ABDOMEN: Soft, nontender. EXTREMITIES: No edema. No calf swelling. No tenderness. No signs of ischemia. [employer] BENEFITS: Essentially unchanged. DIAGNOSTIC DATA: Available diagnostic data reviewed. ASSESSMENT: Overall, the patient's general medical condition is stable. PLAN: As ordered. Addi Elizondo MD
[2017-02-24] MEDS: Multivitamin With Minerals Tab PO SCH (09:06)
--- NOTE | 2017-02-24 10:24 | PCM.PYCHPN ---
Psychiatric Progress Note - Psychiatric Progress Note Patient seen today, length of contact: Patient evaluated, chart reviewed Patient Chief Complaint: "I'm okay" Problems Identified/Issues Discussed: No significant events. He reports that his mood is improving. No AH/VH/SI/HI/ paranoia/delusions. No signs/symptoms of ETOH withdrawal. We discussed continued tapering of Ativan. Medication Change: Yes (Taper Ativan) Medical Record Reviewed: Yes Mental Status Examination - Cognitive Function Orientation: Person, Place, Situation, Time Memory: Intact Attention: WNL Concentration: WNL Association: WNL Fund of Knowledge: [facility] Decription of patient's judgement and insights: Fair I/J - Mood Mood: Depressed - Affect Affect: Constricted - Speech Speech: Appropriate - Formal Thought Process Formal Thought Process: No Impairment Psychotic Thoughts and Behaviors: No AH/VH/paranoia/delusions - Suicidal Ideation Suicidal Ideation: No - Homicidal Ideation Homicidal Ideation: No Goal/Treatment Plan - Goal/Treatment Plan Need for Continued Stay: Remain at risks for inpatient hospitalization Progress Toward Problem(s) and Goals/Treatment Plan: Opioid use disorder, alcohol use disorder, depression unspecified -Continue current medications -Taper Ativan -Individual and group therapy -Disposition planning Estimated Date of D/C: 02/25/17
--- NOTE | 2017-02-25 08:47 | PN ---
DATE: 02/25/2017 SUBJECTIVE: The patient is seen and examined. Interim events noted. The patient remains in psychiatric unit. Denies any specific medical complaints. No chest pain. No shortness of breath. PHYSICAL EXAMINATION: GENERAL: The patient is in no acute distress. VITAL SIGNS: Stable. HEART: S1 and S2, normal, regular. LUNGS: Good bilateral air exchange. ABDOMEN: Soft, nontender. EXTREMITIES: No edema. No calf swelling. No tenderness. No acute ischemia. CENTRAL NERVOUS SYSTEM: Essentially unchanged. DIAGNOSTIC DATA: Available diagnostic data reviewed. ASSESSMENT: Overall, the patient is medically stable. The patient needs for possible discharge today. PLAN: As ordered. Case and plan discussed with the patient. Discharge plan was explained to the patient. Addi Elizondo MD
[2017-02-25] MEDS: Multivitamin With Minerals Tab PO SCH (08:51)
[2017-02-25] MEDS: Acyclovir 5% OINT 15 APPLIC/15 GM EXT SCH (08:53)
[2017-02-25 09:06] VITALS: BP 124/76; PULSE 83; TEMP 96.9
--- NOTE | 2017-02-25 11:41 | PCM.PYCHDC ---
Mental Status Examination - Mental Status Examination Orientation: Person, Place, Situation, Time Memory: Intact Mood: Depressed Affect: Broad Speech: Appropriate Attention: WNL Concentration: WNL Association: WNL Fund of Knowledge: WNL Formal Thought Process: No Impairment Description of patient's judgement and insight: fair Psychotic Thoughts and Behaviors: denies auditory hallucinations Suicidal Ideation: No Current Homicidal Ideation?: No Plan: pt denies any suicidal or homicidal thoughts Discharge Summary - Discharge Note Reason for Hospitalization: pt expressed suicidal thoughts in context of alcohol/opioid use and homelessness and non-adherence to treatment Psychiatric History (includes Medical, Family, Personal Hx): history of prior hospitalizations Consultations:: List each consultation separately and include: 1. Reason for request. 2. Findings. 3. Follow-up Consultations: seen by the hospitalist Summary of Hospital Course include:: 1. Description of specific treatment plan utilized for patients during their course of treatmen. 2. Summarize the time- course for resolution of acute symptoms and/or regressed behaviors. 3. Describe issues identified and worked on during hospitalization. 4. Describe medication utilized. 5. Describe medical problems identified and treated. 6. Reassessment of suicide risk Summary of Hospital Course: 56 yo male with history of depression, opioid and alcohol use disorders. he is homeless. he was at [facility] and left to go to [facility] about a month ago, pt states he came into some money and started using alcohol and heroin immediately after discharge and never went to the intake. he reports he has become more depressed, hopeless and has started to have instrusive suicidal thoughts which he states are like a voice telling him to "go to [place] and jump in front of a train." he denies current withdrawal symptoms. he is estranged from his exwife and daughter. he is not working and has no source of income. he denies legal problems. hospital course: pt was admitted to [facility] and oriented to the unit. pt was placed on routine safety protocols. pt was started on an ativan taper for alcohol withdrawal and was restarted on his trazodone and seroquel at night. he did not have any complications from opioid/alcohol withdrawal and he was participating in groups and social with peers. he was stating he was no longer having suicidal or homicidal thoughts. he was planning to attend an AA meeting directly after discharge. he was agreeing to follow-up with aftercare appointments. - Final Diagnosis (DSM 5) Condition upon Discharge: FAIR DSM 5: alcohol dependence opioid dependence mood disorder unspecified Disposition: HOME/ ROUTINE Follow-up Treatment Plan: follow up with aftercare as directed take medications as prescribed do not use alcohol, tobacco or other illicit substances call 911 if any suicidal or homicidal thoughts attend AA/NA meetings daily. Prescriptions/Medication Reconciliation: Folic Acid 1 mg PO DAILY #30 tab Gabapentin [Neurontin] 300 mg PO TID #90 cap Multimineral/Multivitamin [Therapeutic-M Tab] 1 tab PO DAILY #30 tab Nicotine 14 mg/24 hr [Nicoderm CQ] 1 patch TD DAILY #30 patch QUEtiapine [Seroquel] 100 mg PO HS #30 tab Thiamine [Vitamin B1 Tab] 100 mg PO DAILY #30 tab traZODone [Desyrel] 100 mg PO HS #30 tab - Smoking Cessation Smoking Cessation Medication prescribed: Yes - Antipsychotic Medications Pt discharged on 2 or more routine antipsychotic medications: No
== END 2017-02-25 11:45 | disposition home or self-care (01) | DRG 744 ==
LOC: H.ER 20:07 → H.ERHOLD 23:09 → H.PSYCH 02-20 00:48
PROVIDERS: ADMIT Psychiatry & Neurology Psychiatry; ATTEND Psychiatry & Neurology Psychiatry
PROC: GZHZZZZ Group Psychotherapy (ICD-10-PCS; principal; 2017-02-19)
PROC: GZ56ZZZ Individual Psychotherapy, Supportive (ICD-10-PCS; 2017-02-19)
DX: F10.230 Alcohol dependence with withdrawal, uncomplicated (principal); J43.9 Emphysema, unspecified; F11.23 Opioid dependence with withdrawal; R45.851 Suicidal ideations; Z59.0 Homelessness; F39 Unspecified mood [affective] disorder; G47.30 Sleep apnea, unspecified; B00.1 Herpesviral vesicular dermatitis; F17.210 Nicotine dependence, cigarettes, uncomplicated